=== PATIENT | male | born 1940 | race Caucasian/White ===

== ENCOUNTER 2016-08-21 09:57 | Emergency (ER) | payer OTHER ==
[~2016-08-21] VITALS: Ht 167.6 cm; Wt 63.5 kg
[~2016-08-21 09:57] MED LIST: ACETAMINOPHEN325 M1 PO; ADULT LOW DOSE81 MG PO; ALBUTEROL2.5 MG/0.1; ALBUTEROL2.5 MG/0.5 IH; ALBUTEROL2.5 MG/31 INH; ASPIRIN EC81 M1 PO; ASPIRIN81 M2 PO; ATORVASTATIN CA40 MG PO; BENICAR 5 MG5 MG PO; BENICAR20 MG PO; BENICAR40 MG PO; BISACODYL SUPP10 MG RECTAL; BUDESONIDE0.25 MG/2 IH; BUDESONIDE0.5 MG/2 M INH; BYSTOLIC 5 MG5 M1 PO; CARDIZEM CD120 MG PO; CEFDINIR300 MG PO; CEFTIN 250 MG250 MG PO; CEFUROXIME250 MG PO; CENTRUM CHEWAB1 EACH PO; CENTRUM SILVER1 EAC2 PO; CENTRUM SILVER1 EAC4 PO; CIPRO250 M1 PO; CIPROFLOXACIN500 M1 PO; CLOPIDOGREL PO; COLACE 100 MG100 MG PO; COLACE100 MG PO; COUMADIN 2.5MG2.5 M1 PO; COUMADIN 5 MG TA5 M1 PO; FERREX 150150 MG PO; FLOMAX0.4 MG PO; HYDROCHLOROTH12.5 MG PO; IPRATROPIU0.2 MG/1 M IH; JALYN 0.5-0.41 EACH PO; KEFLEX250 MG PO; KEFLEX500 MG PO; KEPPRA XR750 MG PO; LASIX 20 MG TAB20 MG PO; LASIX 40 MG TAB40 M2 PO; LEVAQUIN 500 M500 M2 PO; LIPITOR40 MG PO; MILK OF MA2400 MG/10 PO; MUCINEX600 MG PO; MULTIVITAMIN; ONDANSETRON HCL4 M2 PO; PACERONE 200 M200 M1 PO; PANTOPRAZOLE SO40 M1 PO; PEPCID40 MG PO; PERFORMIST; PERFORMIST INH; PERFOROMIS20 MCG/2 M IH; PERFOROMIST; PLAVIX 75 MG TA75 M1 PO; POTASSIUM20 PO; PRADAXA75 MG PO; PREDNISONE 10 M10 MG PO; PREDNISONE 20 M20 M1 PO; PROSCAR 5MG TABL5 M1 PO; PULMICORT0.5 MG/2 M IH; SENNA8.6 MG PO; SIMVASTATIN80 MG PO; SPIRIVA INH; TAMSULOSIN HCL0.4 MG PO; VENTOLIN HFA 1818 GM INH; VENTOLIN HFA INH8 GM; XOPENEX0.63 MG/3 INH
[2016-08-21 11:08] LABS: HEMATOCRIT 38.8 % (42.0-52.0); HEMOGLOBIN 12.9 gm/dL (14.0-18.0); MCH 29.9 pg (26.0-34.0); MCHC 33.3 g/dL (28.0-37.0); MCV 89.7 fL (80.0-100.0); RBC 4.33 mil/uL (4.50-6.00); RDW 17.7 % (10.5-14.5); WBC 7.9 thou/uL (4.0-11.0)
[2016-08-21 11:17] LABS: CALCIUM 8.9 mg/dL (8.5-10.1); CREATININE 1.2 mg/dL (0.7-1.3); POTASSIUM 4.4 mmol/L (3.5-5.1)
== END 2016-08-21 12:03 | disposition home or self-care (01) ==
LOC: ER 09:57
PROVIDERS: Emergency Medicine
DX: M79.641 Pain in right hand (principal); R05 Cough; R09.81 Nasal congestion; Z86.73 Personal history of transient ischemic attack (TIA), and cerebral infarction without residual deficits; I25.2 Old myocardial infarction; Z95.0 Presence of cardiac pacemaker; J44.9 Chronic obstructive pulmonary disease, unspecified; I10 Essential (primary) hypertension; Z88.1 Allergy status to other antibiotic agents

== ENCOUNTER 2017-02-03 18:10 | Emergency (ER) | payer OTHER ==
[~2017-02-03] VITALS: Ht 167.6 cm; Wt 63.5 kg
--- NOTE | ~2017-02-03 | EKG ---
[place] [address] [place] [address] ELECTROCARDIOGRAM REPORT Name: TOMASA MEDINA Room #: DEP Mya#: [id number] Admission: 02/03/17 Attend Phys: Discharge: 02/03/17 Date of : 38 Report #: [id number] THIS REPORT FOR: //name// [facility] ED Test Date: 2017-02-03 Test Time: 18:29:48 Pat Name: TOMASA MEDINA Department: Room: Gender: M Thread Winder Automatic: [id number] : 1940 Requested By: Komal Boyce Order Number: [id number] MD: Perez Miranda Measurements Intervals [place] Rate: 63 P: -25 ID: 66 QRS: -70 QRSD: 118 T: 125 QT: 421 QTc: 431 Interpretive Statements Sinus rhythm with first-degree AV block Multiform ventricular premature complexes Left anterior fascicular block Nonspecific ST and T wave abnormality Compared to ECG 01/19/2016 15:37:10 Ventricular premature complex(es) now present criteria for inferior infarct or less prominent Electronically Signed On 02-04-2017 7:26:36 CDT by Perez Miranda [email or web address] <ELECTRONICALLY SIGNED> By: Perez Miranda MD, [facility] 02/04/17 0726 28 28 Perez Miranda MD, [facility] /EPI
[2017-02-03 19:10] LABS: ABSOLUTE NEUTROPHILS 4.6 thou/uL (1.4-8.2); BASOPHILS 0.5 % (0.0-2.0); EOSINOPHILS 0.8 % (0.0-3.0); HEMATOCRIT 37.8 % (42.0-52.0); HEMOGLOBIN 12.8 gm/dL (14.0-18.0); LYMPHOCYTES 11.6 % (24.0-44.0); MCH 29.7 pg (26.0-34.0); MCHC 33.8 g/dL (28.0-37.0); MCV 87.6 fL (80.0-100.0); PLATELET COUNT 142 thou/uL (150-400); POLYS 76.1 % (36.0-66.0); RBC 4.32 mil/uL (4.50-6.00); RDW 17.3 % (10.5-14.5)
[2017-02-03 19:12] LABS: MANUAL DIFF NO
[2017-02-03 19:18] LABS: CALCIUM 9.2 mg/dL (8.5-10.1); CREATININE 1.1 mg/dL (0.7-1.3)
[2017-02-03 19:26] LABS: ALBUMIN 3.5 g/dL (3.4-5.0); PROTIME 10.5 Seconds (9.3-11.4); TOTAL BILIRUBIN 0.8 mg/dL (<0.1-1.0); TOTAL PROTEIN 6.5 g/dL (6.4-8.2); TROPONIN-I 0.04 ng/mL (<0.04-0.07)
[2017-02-03 19:45] LABS: URINE BILIRUBIN NEGATIVE (Negative); URINE BLOOD NEGATIVE (Negative); URINE COLOR YELLOW; URINE GLUCOSE-RANDOM* NEGATIVE (Negative); URINE KETONES NEGATIVE (Negative); URINE NITRITE NEGATIVE (Negative); URINE PROTEIN (DIPSTICK) NEGATIVE (Negative); URINE UROBILINOGEN 0.2 E.U./dl (0.2-1.0)
[2017-02-03] MEDS ORDERED: ZPAK PO (20:52)
[2017-02-03] MEDS ORDERED: DELTASONE20 MG PO (20:52)
== END 2017-02-03 21:20 | disposition home or self-care (01) ==
LOC: ER 18:10
PROVIDERS: Physician Assistant
DX: J44.1 Chronic obstructive pulmonary disease with (acute) exacerbation (principal); R10.30 Lower abdominal pain, unspecified; I69.920 Aphasia following unspecified cerebrovascular disease; I25.2 Old myocardial infarction; I10 Essential (primary) hypertension; Z95.0 Presence of cardiac pacemaker; Z88.1 Allergy status to other antibiotic agents; Z87.891 Personal history of nicotine dependence

== ENCOUNTER 2017-02-16 17:07 | Inpatient (IN) | payer OTHER ==
[~2017-02-16] VITALS: Ht 6 cm; Wt 65.7 kg
--- NOTE | ~2017-02-16 | 2DMMODE ---
[facility] [address] [place] [address] 2 D/M-MODE ECHOCARDIOGRAM Name: TOMASA MEDINA Room #: 206-P ADM IN M.R.#: [id number] Admission: 02/16/17 Attend Phys: Beatriz Park Discharge: Date of : 38 Date of Service: 02/17/17 1706 Report #: [id number] THIS REPORT FOR: //name// APPROVED REPORT Study performed: 02/17/2017 15:15:58 EXAM: Comprehensive 2D, Doppler, and color-flow Echocardiogram Patient Location: Echo lab Room #: 26 Status: routine BSA: 1.66 BP: 150/70 mmHg Other Information Study Quality: Adequate, Technically Difficult Indications COPD Dyspnea Pacemaker CAD Chest Pain Hypertension/HDD 2D Dimensions RVDd: 35.14 mm LVEF(%): 31.19 (>50%) IVSd: 12.86 (7-11mm) LVOT Diam: 17.85 (18-24mm) LVDd: 54.80 mm PWd: 12.25 (7-11mm) LVDs: 46.65 (25-40mm) Aortic Root: 31.57 mm IVC: 26.00 mm Petit's LVEF: 31.19 % Volumes Left Atrial Volume (Systole) Single Plane 4CH: 51.74 mL Single Plane 2CH: 61.02 mL LA ESV Index: 37.00 mL/m2 Aortic Valve AoV Peak Gage.: 0.97 m/s AO Peak Gr.: 3.78 mmHg LVOT Max P.31 mmHg LVOT Max V: 0.91 m/s [facility] [address] [place] [address] 2 D/M-MODE ECHOCARDIOGRAM Name: TOMASA MEDINA Room #: 206-P [facility] IN [facility]#: [id number] Admission: 02/16/17 Attend Phys: Beatriz Park Discharge: Date of : 38 Date of Service: 02/17/17 1706 Report #: [id number] [id number] Vmax: 2.34 cm2 Mitral Valve E/A Ratio: 0.4 MV Decel. Time: 245.18 ms MV E Max Gage.: 0.38 m/s MV A Gage.: 0.93 m/s MV PHT: 71.10 ms IVRT: 235.29 ms Pulmonary Valve PV Peak Gage.: 0.84 m/s PV Peak Gr.: 2.84 mmHg Tricuspid Valve TR Peak Gage.: 2.90 m/s RAP Estimate: 10.00 mmHg TR Peak Gr.: 33.62 mmHg Left Ventricle Left ventricle is at the upper limits of normal. Akinesis of inferior and inferolateral neely Mild concentric left ventricular hypertrophy. Left ventricular systolic function is severely decreased. LVEF is 25%. Mild diastolic dysfunction is present (impaired relaxation pattern). Right Ventricle Right ventricle is at the upper limits of normal. Right ventricle is hypokinetic. Atria Left atrium is mildly dilated. Right atrium is mildly dilated. Aortic Valve The aortic valve is normal in structure. Trace aortic regurgitation. There is no aortic valvular stenosis. Mitral Valve The mitral valve is normal in structure. Mild mitral regurgitation. No evidence of mitral valve stenosis. Tricuspid Valve The tricuspid valve is normal in structure. There is mild tricuspid regurgitation. The right atrial pressure is estimated at 10 mmHg. PAP is estimated at 40 mmHg. Pulmonic Valve [facility] [address] [place] [address] 2 D/M-MODE ECHOCARDIOGRAM Name: TOMASA MEDINA Room #: 206-P ADM IN M.R.#: [id number] Admission: 02/16/17 Attend Phys: Beatriz Park Discharge: Date of : 38 Date of Service: 02/17/17 1706 Report #: [id number] Pulmonic valve is not well visualized. There is no pulmonic valvular regurgitation. Great Vessels The aortic root is normal in size. IVC is dilated and collapses >50% with inspiration. Pericardium There is no pericardial effusion. <Conclusion> Left ventricular systolic function is severely decreased. LVEF is 25%. Global hypokinesis. Akinesis of inferior and inferolateral neely Both atria are dilated. The aortic valve is normal in structure. No aortic valvular stenosis. The mitral valve is normal in structure. Mild mitral regurgitation. Pulmonary artery pressure of 40mmHg There is no pericardial effusion. Pacing/ICD wires in right heart <ELECTRONICALLY SIGNED> By: Perez Miranda MD, FACC 02/17/171705 05 05 Perez Miranda MD, FACC /INF
--- NOTE | ~2017-02-16 | HC ---
[facility] [place] [address] CONSULTATION Name: TOMASA MEDINA Room #: 206-P [facility] IN M.R.#: [id number] Admission: 02/16/17 Attend Phys: Dom Millan MD Discharge: 02/18/17 Date of : 39 Report #: [id number] THIS REPORT FOR: //name// CC: Arnaldo Millan HISTORY OF PRESENT ILLNESS: A 77-year-old male well known to myself, admitted with some atypical chest pain. He is aphasic from a remote stroke. 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 Coronary coreas, he has an occluded right coronary artery, he has had prior stents to his LAD and circumflex. Apparently, recent nuclear test in September was cancelled for some reason. He has a nondescript discomfort by tapping on his chest and the right shoulder. His usual anginal pain has been posterior neck pain. Unfortunately, I do not have any recent test otherwise. He has been compliant with medications. He has actually been quite stable from my perspective, he has grade 1 diastolic dysfunction and an EF of 25-30%. Pacemaker was interrogated. Sick sinus syndrome, paroxysmal AFib. He has periods of bigeminy here in the hospital. He has been compliant with medications. He is also followed by Dr. Frye and Dr. Mayfield. Pacemaker ICD was interrogated last night. No events were noted. There were paroxysmal AFib noted, which we are aware of. As I stated, the CVA was expressive aphasia and right-sided weakness. MEDICATIONS: Have been albuterol, aspirin, Lipitor 40, Pulmicort, Pradaxa 75, Proscar, Lasix, Xopenex, Bystolic 5, Benicar 20, Protonix, Flomax. PAST MEDICAL HISTORY: Positive for coronary disease, severe ischemic cardiomyopathy, prior LAD and circumflex stents, last cath in 2009, occluded right coronary artery, inferior infarct which was extensive, but collateralized. Hypertension, hypercholesterolemia, CVA with clot retrieval and an intracranial hemorrhage at that setting. Pacemaker was placed in 2010. DJD. SOCIAL HISTORY: He is . No current alcohol or tobacco, former tobacco. Retired, relatively independent. ALLERGIES: LEVAQUIN. FAMILY HISTORY: Mother had premature disease. Father had prostate cancer. REVIEW OF SYSTEMS: Essentially negative except for stated above. LABORATORY DATA: Sodium 143, potassium 4.6, creatinine 1.0. Troponin negative 0.04, 0.06, not significant. Cholesterol 194, LDL 100, that was from ____ yesterday. Hemoglobin and hematocrit is 12 and 37.5, white count 7.1. Chest x-ray looks normal. CT of the abdomen done in February 03 had a 3.6 cm inferior ____ aneurysm, which we are aware of and some thickened gallbladder. [address] [address] CONSULTATION Name: TOMASA MEDINA Room #: 206-P [facility] IN M.R.#: [id number] Admission: 02/16/17 Attend Phys: Dom Millan MD Discharge: 02/18/17 Date of : 38 Report #: [id number] PHYSICAL EXAMINATION: GENERAL: He is alert, but aphasic. He is in no distress. VITAL SIGNS: Blood pressure 150/70, pulse 60. HEENT: Eyes reveal xanthelasmas. Pharynx is clear. NECK: Shows preserved upstrokes without JVD or bruits. LUNGS: Clear. CARDIAC: Regular rate and rhythm, S1, S2. There is some irregularity. Faint systolic murmur noted. ABDOMEN: Soft, HSM to slightly tender in the midepigastric and right upper quadrant plus/minus on Khan sign. EXTREMITIES: Reveal trace of edema. Pulses intact. NEUROLOGIC: He is aphasic. There is some weakness on the right side noted. I did not ambulate him. ASSESSMENT: 1. Chest pain, I suspect noncardiac. 2. Coronary artery disease with extensive cardiac history stated above. 3. Moderately severe ischemic cardiomyopathy, functional class 1-2. 4. Hypertension. 5. Hypercholesterolemia. 6. 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 7. Degenerative joint disease. RECOMMENDATIONS AND PLAN: We will obtain abdominal ultrasound today, some abnormality on the CAT scan last month of the gallbladder and nuclear stress test in the morning. I will repeat his echo looking for any change in the wall motion, although he had significant abnormality that was noted in September in the office. We will continue to follow with you. Thank you for asking me to assist in the care of this patient. <ELECTRONICALLY SIGNED> By: Grabiel Dumont MD, FACC 02/19/17 1622 0931 1051 Grabiel Dumont MD, FACC /nt
--- NOTE | ~2017-02-16 | EKG ---
[address] [place] [address] ELECTROCARDIOGRAM REPORT Name: TOMASA MEDINA Room #: 206-P ADM IN M.R.#: [id number] Admission: 02/16/17 Attend Phys: Dom Millan MD Discharge: Date of : 39 Report #: [id number] THIS REPORT FOR: //name// [facility] ED Test Date: 2017-02-16 Test Time: 17:51:31 Pat Name: TOMASA MEDINA Department: Room: 206 P Gender: M Computer Technical Specialist: CYNTHIA : 1940 Requested By: River Waller Order Number: [id number] MD: Perez Miranda Measurements Intervals [place] Rate: 72 P: 37 DC: 261 QRS: -65 QRSD: 155 T: 163 QT: 433 QTc: 474 Interpretive Statements Sinus rhythm Ventricular bigeminy Prolonged [place] interval Nonspecific IVCD Early R-wave progression, left anterior hemiblock Compared to ECG 02/16/2017 17:30:48 No significant change was found Electronically Signed On 02-17-2017 7:45:33 CDT by Perez Miranda [email or web address] <ELECTRONICALLY SIGNED> By: Perez Miranda MD, [facility] 02/17/17 0745 1751 1751 Perez Miranda MD, [facility] /EPI
--- NOTE | ~2017-02-16 | EKG ---
[address] [address] ELECTROCARDIOGRAM REPORT Name: TOMASA MEDINA Room #: 206-P ADM IN M.R.#: [id number] Admission: 02/16/17 Attend Phys: Arnaldo Zheng DO Discharge: Date of : 39 Report #: [id number] THIS REPORT FOR: //name// [facility] ED Test Date: 2017-02-16 Test Time: 17:30:48 Pat Name: TOMASA MEDINA Department: Room: 206 Gender: M Foot Roentgenologist: CYNTHIA : 1940 Requested By: Jimmie Poe Order Number: [id number] MD: Carlyle Betancourt Measurements Intervals [place] Rate: 78 P: 41 [place]: 255 QRS: -70 QRSD: 151 T: 172 QT: 408 QTc: 465 Interpretive Statements Sinus rhythm Ventricular bigeminy Prolonged [place] interval Electronically Signed On 02-16-2017 23:32:33 CDT by Carlyle Betancourt [email or web address] <ELECTRONICALLY SIGNED> By: Carlyle Betancourt MD 02/16/17 2332 1730 29 Carlyle Betancourt MD /ARJUN
[~2017-02-16 17:07] MED LIST changes: +DELTASONE20 MG PO; +ZPAK PO
[2017-02-16 17:12] VITALS: BP 128/51
[2017-02-16 18:47] LABS: HEMATOCRIT 36.5 % (42.0-52.0); HEMOGLOBIN 12.2 gm/dL (14.0-18.0); MCH 29.6 pg (26.0-34.0); MCHC 33.4 g/dL (28.0-37.0); MCV 88.5 fL (80.0-100.0); PLATELET COUNT 188 thou/uL (150-400); RBC 4.12 mil/uL (4.50-6.00); RDW 18.2 % (10.5-14.5); WBC 7.7 thou/uL (4.0-11.0)
[2017-02-16 18:49] LABS: MANUAL DIFF YES
[2017-02-16 18:53] LABS: ANION GAP < 0 mmol/L (7-16); BUN 27 mg/dL (7-18); CHLORIDE 104 mmol/L (98-107); CO2 37 mmol/L (21-32); CREATININE 1.1 mg/dL (0.7-1.3); GLUCOSE 106 mg/dL (74-106); POTASSIUM 4.8 mmol/L (3.5-5.1); SODIUM 140 mmol/L (136-145)
[2017-02-16 19:02] LABS: TROPONIN-I < 0.04 ng/mL (<0.04-0.07)
[2017-02-16 19:25] LABS: ABSOLUTE NEUTROPHILS 6.9 thou/uL (1.4-8.2); ANISOCYTOSIS 2+; TOTAL CELL COUNT 100
[2017-02-16 20:31] VITALS: BP 125/51
[2017-02-16 20:41] VITALS: BP 127/77
[2017-02-16] MEDS ORDERED: PULMICORT0.5 MG/22 INH (21:41)
[2017-02-16 21:43] VITALS: BP 126/61
[2017-02-16] MEDS ORDERED: VENTOLIN HFA 1818 GM INH (21:44)
[2017-02-16] MEDS ORDERED: ATROVENT HFA14 GM INH (21:46)
[2017-02-16 23:17] VITALS: BP 115/69
[2017-02-17 03:55] VITALS: BP 138/87
[2017-02-17 07:05] LABS: HEMATOCRIT 37.5 % (42.0-52.0); HEMOGLOBIN 12.2 gm/dL (14.0-18.0); MCH 29.3 pg (26.0-34.0); MCHC 32.6 g/dL (28.0-37.0); MCV 89.9 fL (80.0-100.0); RBC 4.18 mil/uL (4.50-6.00); WBC 7.1 thou/uL (4.0-11.0)
[2017-02-17 07:22] LABS: CALCIUM 8.9 mg/dL (8.5-10.1); POTASSIUM 4.6 mmol/L (3.5-5.1); TROPONIN-I 0.06 ng/mL (<0.04-0.07)
[2017-02-17 08:06] LABS: CHOLESTEROL 194 mg/dL (<200); HDL CHOLESTEROL 85 mg/dL (>40); LDL CHOLESTEROL 100 mg/dL (<100); TC:HDL 2.3 Ratio (Not establshd); TRIGLYCERIDE 48 mg/dL (<150); VLDL 10 mg/dL (<40)
[2017-02-17 08:14] VITALS: BP 150/70
[2017-02-17 15:15] VITALS: BP 150/70
[2017-02-17 15:20] VITALS: BP 150/70
[2017-02-17 17:09] VITALS: BP 124/64
[2017-02-17 19:35] VITALS: BP 91/51
[2017-02-18 02:57] VITALS: BP 141/70
[2017-02-18 08:03] VITALS: BP 118/48
[2017-02-18 11:24] VITALS: BP 107/52
[2017-02-18 11:29] VITALS: BP 150/70
== END 2017-02-18 12:04 | disposition home or self-care (01) | DRG 303 ==
LOC: ER 17:07 → 2N 19:34 → EROBS 19:34 → 2N 21:26 → ENTRNSPT 02-18 11:47 → EDTRNSPTSTS 02-18 11:49 → 2N 02-18 12:04
PROVIDERS: Internal Medicine; Nurse Practitioner
DX: I25.10 Atherosclerotic heart disease of native coronary artery without angina pectoris (principal); I50.22 Chronic systolic (congestive) heart failure; I13.0 Hypertensive heart and chronic kidney disease with heart failure and stage 1 through stage 4 chronic kidney disease, or unspecified chronic kidney disease; I69.951 Hemiplegia and hemiparesis following unspecified cerebrovascular disease affecting right dominant side; R07.9 Chest pain, unspecified; I69.320 Aphasia following cerebral infarction; I25.5 Ischemic cardiomyopathy; J44.9 Chronic obstructive pulmonary disease, unspecified; E78.5 Hyperlipidemia, unspecified; N40.0 Benign prostatic hyperplasia without lower urinary tract symptoms; K21.9 Gastro-esophageal reflux disease without esophagitis; I49.5 Sick sinus syndrome; N18.3 Chronic kidney disease, stage 3 (moderate); I48.0 Paroxysmal atrial fibrillation; M19.90 Unspecified osteoarthritis, unspecified site; K80.80 Other cholelithiasis without obstruction; I25.2 Old myocardial infarction; N28.1 Cyst of kidney, acquired; Z95.5 Presence of coronary angioplasty implant and graft; Z95.810 Presence of automatic (implantable) cardiac defibrillator; Z86.711 Personal history of pulmonary embolism; Z99.81 Dependence on supplemental oxygen; Z87.01 Personal history of pneumonia (recurrent); Z87.891 Personal history of nicotine dependence; Z88.1 Allergy status to other antibiotic agents; Z28.21 Immunization not carried out because of patient refusal
CPT/HCPCS: 10081

== ENCOUNTER 2017-05-09 10:56 | Inpatient (IN) | payer OTHER ==
[~2017-05-09] VITALS: Ht 167.6 cm; Wt 63.9 kg
--- NOTE | ~2017-05-09 | EKG ---
[place] [address] [email or web address] [place] [address] ELECTROCARDIOGRAM REPORT Name: TOMASA MEDINA ANDREA Room #: 360- ADM IN M.R.#: [id number] Admission: 05/09/17 Attend Phys: Arnaldo Zheng DO Discharge: Date of : 39 Report #: [id number] THIS REPORT FOR: //name// [facility] ED Test Date: 2017-05-09 Test Time: 11:22:05 Pat Name: TOMASA MEDINA Department: Room: 360 Gender: M Entertainment Lawyer: Kim DOUGHERTY : 1940 Requested By: Edgar Plasencia Order Number: [id number] MD: Perez Miranda Measurements Intervals [place] Rate: 85 P: [place]: QRS: -71 QRSD: 111 T: 103 QT: 380 QTc: 452 Interpretive Statements Baseline artifact limits rhythm assessment. Possible sinus rhythm Left anterior hemiblock Nonspecific ST and T wave abnormality Compared to ECG 02/16/2017 17:51:31 premature ventricular complexes are no longer present Electronically Signed On 05-11-2017 13:57:40 METAL RIVETING MACHINE OPERATOR by Perez Miranda [email or web address] <ELECTRONICALLY SIGNED> By: Perez Miranda MD, [facility] 05/11/17 1357 1122 1122 Perez Miranda MD, [facility] /EPI
--- NOTE | ~2017-05-09 | HC ---
[facility] [place] [address] CONSULTATION Name: TOMASA MEDINA Room #: 360-P [facility] IN M.R.#: [id number] Admission: 05/09/17 Attend Phys: Arnaldo Zheng DO Discharge: 05/13/17 Date of : 39 Report #: [id number] THIS REPORT FOR: //name// CC: Arnaldo Mayfield MD DATE OF SERVICE: 05/09/2017 PULMONARY CONSULTATION REFERRING PROVIDER: Arnaldo Zheng DO REASON FOR CONSULTATION: Hypercapnic respiratory failure and exacerbation of COPD. CHIEF COMPLAINT: Shortness of breath. HISTORY OF PRESENT ILLNESS: Our group is asked to evaluate the patient in consultation while hospitalized at [facility]. The patient is unable to give history due to an expressive aphasia from prior stroke, but history taken from family at the bedside as well as discussion with Dr. Plasencia and review of our office records. He is a pleasant 77-year-old male with the prior history of COPD and chronic systemic steroid use to maintain control of his obstructive lung disease as well as history of prior CVA with some right-sided hemiparesis, but he is ambulatory. Does require supplemental oxygen at baseline, 2 liters nasal cannula continuous. Several days ago, he began having increased shortness of breath, cough without ability to clear sputum and some upper respiratory congestion. No fevers, chills or sweats. Some ill contacts noted when they were at a stroke support group. The patient was able to, however, continue with regular exercise at stroke rehab, doing NuStep, but over the last 3-4 days had increasing shortness of breath as mentioned, inability to walk from his bed to his bathroom without becoming severely dyspneic and was also having some chest tightness. He called our office 2 days ago, was placed on cefdinir and had his prednisone boosted to 20 mg daily. He has also been using aerosol treatments around the clock. The patient's symptoms continued to worsen, presented to the Emergency Department in significant respiratory distress. Arterial blood gas showed some hypercapnia, was placed on noninvasive positive pressure ventilation with BiPAP. The patient has improved since that time. Also received systemic steroids at the time of my evaluation. Now patient is much more comfortable and only mildly labored at rest with his respirations. ALLERGIES: INCLUDE LEVOFLOXACIN. [address] [address] CONSULTATION Name: ADAMTOMASA Room #: 360-P [facility] IN M.R.#: [id number] Admission: 05/09/17 Attend Phys: Arnaldo Zheng DO Discharge: 05/13/17 Date of : 39 Report #: [id number] PAST MEDICAL HISTORY: 1. History of COPD with significant asthmatic component, requiring systemic steroids. 2. Chronic hypoxemic respiratory failure secondary to COPD. 3. History of prior cerebrovascular accident with right-sided hemiparesis and expressive aphasia. 4. Coronary artery disease. 5. Hypertension. 6. Hyperlipidemia. 7. Paroxysmal atrial fibrillation. 8. Cardiomyopathy. OUTPATIENT MEDICATIONS: 1. Pulmicort nebulized twice daily. 2. Prednisone 10 mg daily, recently increased to 20 daily. 3. Albuterol p.r.n. 4. Ipratropium inhaler. 5. Levalbuterol inhaler. 6. Lasix 40 mg daily. 7. Aspirin 81 mg daily. 8. Bystolic 5 mg daily. 9. Flomax 0.4 mg daily. 10. Perforomist nebulized twice daily. 11. Multivitamin. 12. Atorvastatin. 13. Protonix. SOCIAL HISTORY: The patient is an ex-smoker, currently lives with his , is reasonably independent, ambulatory despite prior stroke, currently retired. No alcohol consumption. FAMILY HISTORY: Significant for father with prostate cancer. Mother with coronary artery disease. REVIEW OF SYSTEMS: CONSTITUTIONAL: No fevers, chills or sweats. ENT: Some upper respiratory congestion with clear rhinorrhea. No dysphagia. CARDIOVASCULAR: Some chest tightness associated with exertional dyspnea, but no palpitations. GASTROINTESTINAL: No nausea, vomiting, diarrhea, constipation or abdominal pain. GENITOURINARY: No dysuria, no frequency or hematuria noted. INTEGUMENT: Denies any rash. MUSCULOSKELETAL: No joint pains or cramping or edema appreciated. NEUROLOGIC: As previously described with some right-sided weakness. The [address] [address] CONSULTATION Name: ADAMTOMASA MENDEZ Room #: 360-P [facility] IN M.R.#: [id number] Admission: 05/09/17 Attend Phys: Arnaldo Zheng DO Discharge: 05/13/17 Date of : 39 Report #: [id number] states may have been worsened since feeling ill for the past 5 days. PHYSICAL EXAMINATION: VITAL SIGNS: Afebrile, pulse 80s, respiratory rate 16, blood pressure 97/56 and oxygen saturation 97% on 4 liters nasal cannula. GENERAL: This is a pleasant elderly male, does not appear in any distress. HEENT: Clear oropharynx. Mallampati 1 airway. No thrush. No erythema. NECK: Supple. No lymphadenopathy. No stridor. LUNGS: Diminished, prolonged expiratory phase with diffuse ____ wheezes noted throughout on expiration. Chest revealed some mild kyphosis. CARDIOVASCULAR: Heart was regular. I could not appreciate any murmurs or gallops. ABDOMEN: Soft and nontender. No masses. No hepatosplenomegaly. EXTREMITIES: Revealed some mild muscular atrophy. No edema. LABORATORY DATA: White blood cell count 8000, hemoglobin 13, hematocrit 39 and platelet count 197. Sodium 144, potassium 4.5, chloride 104 and bicarbonate 39. BUN 29 and creatinine 1.6. Glucose 180. Troponin 0.11. BNP 3347. Arterial blood gas done on nonrebreather mask revealed pH 7.32, pCO2 71, pO2 391 and bicarbonate 36. Chest x-ray revealed essentially clear lung pedro. Right-sided pacemaker is noted to be in place. Some obscuration of the structures below the pacemaker. IMPRESSION: 1. Acute exacerbation of chronic obstructive pulmonary disease, likely due to lower respiratory infection. 2. Pdbco-ev-eyjtdwl hypercapnic and hypoxemic respiratory failure. 3. History of prior cerebrovascular accident. 4. History of coronary artery disease. SUGGESTIONS: 1. Systemic steroid with taper. 2. Frequent bronchodilators. 3. Follow up chest radiograph. 4. Continue with Rocephin and azithromycin. 5. Sputum cultures if able. 6. Nasal swab for respiratory viral panel and rapid influenza screen. 7. Continuous oximetry. 8. Continue with BiPAP at bedtime tonight and as needed. We will follow along. Thank you for requesting our suggestions. <ELECTRONICALLY SIGNED> By: Juan Alberto Puente MD 05/16/17 1726 1525 0215 Juan Alberto Puente MD /zee
[~2017-05-09 10:56] MED LIST changes: +ATROVENT HFA14 GM INH; +PULMICORT0.5 MG/22 INH
[2017-05-09 10:59] VITALS: BP 110/44
[2017-05-09 11:29] LABS: HEMATOCRIT 39.4 % (42.0-52.0); HEMOGLOBIN 12.8 gm/dL (14.0-18.0); MCH 30.2 pg (26.0-34.0); MCHC 32.4 g/dL (28.0-37.0); MCV 93.1 fL (80.0-100.0); RBC 4.24 mil/uL (4.50-6.00); RDW 16.9 % (10.5-14.5); WBC 8.4 thou/uL (4.0-11.0)
[2017-05-09 11:38] LABS: CALCIUM 9.7 mg/dL (8.5-10.1); CREATININE 1.6 mg/dL (0.7-1.3); POTASSIUM 4.5 mmol/L (3.5-5.1)
[2017-05-09] MEDS ORDERED: CENTRUM SILVER1 EAC4 PO (11:42)
[2017-05-09] MEDS ORDERED: PREDNISONE 20 M20 MG PO (11:45)
[2017-05-09 11:48] LABS: TROPONIN-I 0.11 ng/mL (<0.06)
[2017-05-09 12:03] LABS: BE(vivo) 7.3 mmol/L (-2 to +3); HCO3 35.7 mmol/L (22.0-26.0); PCO2 70.5 mmHg (35.0-45.0); PO2 390.8 mmHg (80.0-100.0); pH 7.322 (7.360-7.450); sO2 99.8 % (92.0-98.0)
[2017-05-09 12:50] VITALS: BP 102/56
[2017-05-09 14:20] VITALS: BP 97/56
[2017-05-09 16:00] VITALS: BP 177/78
[2017-05-09 18:55] VITALS: BP 98/54
[2017-05-09 23:05] VITALS: BP 112/67
[2017-05-10 04:10] VITALS: BP 121/74
[2017-05-10 05:46] LABS: BE(vivo) 8.7 mmol/L (-2 to +3); HCO3 36.4 mmol/L (22.0-26.0); PO2 96.3 mmHg (80.0-100.0); pH 7.355 (7.360-7.450); sO2 96.8 % (92.0-98.0)
[2017-05-10 05:49] LABS: PCO2 66.7 mmHg (35.0-45.0)
[2017-05-10 08:46] VITALS: BP 150/68
[2017-05-10 12:00] VITALS: BP 122/67
[2017-05-10 12:25] LABS: HEMATOCRIT 37.1 % (42.0-52.0); HEMOGLOBIN 12.2 gm/dL (14.0-18.0); MCH 30.4 pg (26.0-34.0); MCHC 32.8 g/dL (28.0-37.0); MCV 92.7 fL (80.0-100.0); PLATELET COUNT 169 thou/uL (150-400); RDW 16.8 % (10.5-14.5); WBC 9.6 thou/uL (4.0-11.0)
[2017-05-10 12:50] LABS: ABSOLUTE NEUTROPHILS 8.5 thou/uL (1.4-8.2); ANISOCYTOSIS 1+
[2017-05-10 16:35] VITALS: BP 121/67
[2017-05-10 19:30] VITALS: BP 95/57
[2017-05-11 03:23] VITALS: BP 134/75
[2017-05-11 04:34] LABS: CALCIUM 9.1 mg/dL (8.5-10.1); CREATININE 1.2 mg/dL (0.7-1.3); POTASSIUM 5.4 mmol/L (3.5-5.1)
[2017-05-11 07:22] VITALS: BP 152/85
[2017-05-11 12:50] VITALS: BP 127/71
[2017-05-11 17:00] VITALS: BP 126/67
[2017-05-11 20:40] VITALS: BP 134/78
[2017-05-12 04:30] VITALS: BP 134/95
[2017-05-12 05:09] LABS: BE(vivo) 5.1 mmol/L (-2 to +3); HCO3 32.5 mmol/L (22.0-26.0); PCO2 61.1 mmHg (35.0-45.0); PO2 82.6 mmHg (80.0-100.0); pH 7.344 (7.360-7.450); sO2 95.3 % (92.0-98.0)
[2017-05-12 06:56] LABS: HEMATOCRIT 38.6 % (42.0-52.0); HEMOGLOBIN 12.6 gm/dL (14.0-18.0); MCH 30.2 pg (26.0-34.0); MCHC 32.6 g/dL (28.0-37.0); MCV 92.8 fL (80.0-100.0); PLATELET COUNT 174 thou/uL (150-400); RBC 4.16 mil/uL (4.50-6.00); RDW 16.6 % (10.5-14.5); WBC 11.6 thou/uL (4.0-11.0)
[2017-05-12 07:06] LABS: CALCIUM 8.8 mg/dL (8.5-10.1); CREATININE 1.1 mg/dL (0.7-1.3); POTASSIUM 4.5 mmol/L (3.5-5.1)
[2017-05-12 08:37] LABS: ABSOLUTE NEUTROPHILS 10.9 thou/uL (1.4-8.2); ANISOCYTOSIS 1+
[2017-05-12 09:05] VITALS: BP 137/80
[2017-05-12 13:25] VITALS: BP 101/61
[2017-05-12 15:20] VITALS: BP 125/78
[2017-05-12 19:40] VITALS: BP 115/70
[2017-05-13 01:08] LABS: ADENOVIRUS Negative (Negative); INFLUENZA A Negative (Negative); INFLUENZA B Negative (Negative); METAPNEUMOVIRUS Negative (Negative); PARAINFLUENZA 1 Negative (Negative); PARAINFLUENZA 2 Negative (Negative); PARAINFLUENZA 3 Negative (Negative); RHINOVIRUS Negative (Negative); RSV A Positive (Negative); RSV B Negative (Negative)
[2017-05-13 03:35] VITALS: BP 156/95
[2017-05-13 06:49] LABS: HEMATOCRIT 35.9 % (42.0-52.0); MCH 30.4 pg (26.0-34.0); MCHC 33.5 g/dL (28.0-37.0); MCV 90.7 fL (80.0-100.0); PLATELET COUNT 162 thou/uL (150-400); RBC 3.96 mil/uL (4.50-6.00); RDW 16.5 % (10.5-14.5); WBC 11.3 thou/uL (4.0-11.0)
[2017-05-13 07:58] LABS: CALCIUM 8.7 mg/dL (8.5-10.1); CREATININE 1.1 mg/dL (0.7-1.3); POTASSIUM 4.2 mmol/L (3.5-5.1)
[2017-05-13 08:04] VITALS: BP 163/93
[2017-05-13] MEDS ORDERED: AZITHROMYCIN 2250 MG PO (09:17)
[2017-05-13] MEDS ORDERED: ALBUTEROL2.5 MG/0.5 INH (09:17)
[2017-05-13] MEDS ORDERED: MEDROL DOSPAK21 TA1 PO (09:17)
[2017-05-13] MEDS ORDERED: KEFLEX500 M1 PO (09:18)
[2017-05-13 10:44] LABS: ABSOLUTE NEUTROPHILS 11.1 thou/uL (1.4-8.2)
[2017-05-13 10:46] LABS: ANISOCYTOSIS SLIGHT; POIKILOCYTOSIS SLIGHT
[2017-05-13 15:52] VITALS: BP 163/93
== END 2017-05-13 16:58 | disposition home or self-care (01) | DRG 189 ==
LOC: ER 10:56 → 3W 12:12 → EROBS 12:12 → 3W 14:25
PROVIDERS: Emergency Medicine; Family Medicine; Internal Medicine Pulmonary Disease
PROC: 5A09357 Assistance with Respiratory Ventilation, Less than 24 Consecutive Hours, Continuous Positive Airway Pressure (ICD-10-PCS; principal; 2017-05-09)
DX: J96.21 Acute and chronic respiratory failure with hypoxia (principal); J44.1 Chronic obstructive pulmonary disease with (acute) exacerbation; I69.351 Hemiplegia and hemiparesis following cerebral infarction affecting right dominant side; I50.22 Chronic systolic (congestive) heart failure; I13.0 Hypertensive heart and chronic kidney disease with heart failure and stage 1 through stage 4 chronic kidney disease, or unspecified chronic kidney disease; J96.22 Acute and chronic respiratory failure with hypercapnia; E78.5 Hyperlipidemia, unspecified; N40.0 Benign prostatic hyperplasia without lower urinary tract symptoms; K21.9 Gastro-esophageal reflux disease without esophagitis; N18.3 Chronic kidney disease, stage 3 (moderate); I25.5 Ischemic cardiomyopathy; I48.0 Paroxysmal atrial fibrillation; E87.5 Hyperkalemia; E78.00 Pure hypercholesterolemia, unspecified; I25.10 Atherosclerotic heart disease of native coronary artery without angina pectoris; Z95.5 Presence of coronary angioplasty implant and graft; Z79.899 Other long term (current) drug therapy; I69.320 Aphasia following cerebral infarction; Z93.0 Tracheostomy status; Z95.810 Presence of automatic (implantable) cardiac defibrillator; Z93.1 Gastrostomy status; I25.2 Old myocardial infarction; Z86.711 Personal history of pulmonary embolism; Z88.1 Allergy status to other antibiotic agents; Z87.891 Personal history of nicotine dependence; Z82.49 Family history of ischemic heart disease and other diseases of the circulatory system; Z80.42 Family history of malignant neoplasm of prostate; Z99.81 Dependence on supplemental oxygen
CPT/HCPCS: 10779

== ENCOUNTER 2018-03-04 14:17 | Emergency (ER) | payer OTHER ==
[~2018-03-04] VITALS: Ht 162.6 cm; Wt 63.5 kg
--- NOTE | ~2018-03-04 | EKG ---
[address] [address] ELECTROCARDIOGRAM REPORT Name: TOMASA MEDINA [id number] Admission: 03/04/18 Attend Phys: Discharge: 03/04/18 Date of : 38 Report #: [id number] THIS REPORT FOR: //name// [facility] ED Test Date: 2018-03-04 Test Time: 16:17:45 Pat Name: TOMASA MEDINA Department: Room: Gender: M Hot Strip Mill Inspector: SAMEER : 1940 Requested By: River Waller Order Number: [id number] MD: Carlyle Betancourt Measurements Intervals [place] Rate: 74 P: [place]: QRS: -59 QRSD: 116 T: 127 QT: 535 QTc: 594 Interpretive Statements Sinus rhythm with first degree av block Inferior infarct, old Motion artifact Compared to ECG 05/09/2017 11:22:05 Electronically Signed On 03-05-2018 8:32:09 CDT by Carlyle Betancourt [email or web address] <ELECTRONICALLY SIGNED> By: Carlyle Betancourt MD 03/05/18 0832 16 16 Carlyle Betancourt MD /ARJUN
[~2018-03-04 14:17] MED LIST changes: +ALBUTEROL2.5 MG/0.5 INH; +AZITHROMYCIN 2250 MG PO; +KEFLEX500 M1 PO; +MEDROL DOSPAK21 TA1 PO; +PREDNISONE 20 M20 MG PO
[2018-03-04 15:49] LABS: ABSOLUTE NEUTROPHILS 7.5 thou/uL (1.4-8.2); BASOPHILS 0.4 % (0.0-2.0); EOSINOPHILS 0.2 % (0.0-3.0); HEMATOCRIT 35.5 % (42.0-52.0); HEMOGLOBIN 11.6 gm/dL (14.0-18.0); LYMPHOCYTES 4.5 % (24.0-44.0); MCH 28.7 pg (26.0-34.0); MCHC 32.6 g/dL (28.0-37.0); MCV 87.9 fL (80.0-100.0); MONOCYTES 5.3 % (1.0-8.0); PLATELET COUNT 167 thou/uL (150-400); POLYS 89.6 % (36.0-66.0); RBC 4.04 mil/uL (4.50-6.00); RDW 17.8 % (10.5-14.5); WBC 8.4 thou/uL (4.0-11.0)
[2018-03-04 15:58] LABS: ANION GAP 4 mmol/L (7-16); BUN 23 mg/dL (7-18); CHLORIDE 104 mmol/L (98-107); CO2 35 mmol/L (21-32); CREATININE 1.2 mg/dL (0.7-1.3); GLUCOSE 127 mg/dL (74-106); POTASSIUM 4.9 mmol/L (3.5-5.1); SODIUM 143 mmol/L (136-145)
[2018-03-04 16:06] LABS: SGOT 20 U/L (15-37); SGPT 23 U/L (30-65); TOTAL BILIRUBIN 0.5 mg/dL (<0.1-1.0); TOTAL PROTEIN 6.1 g/dL (6.4-8.2); TROPONIN-I <0.06 ng/mL (<0.06)
[2018-03-04] MEDS ORDERED: TRAMADOL 50 MG50 MG PO (16:44)
== END 2018-03-04 17:09 | disposition home or self-care (01) ==
LOC: ER 14:17
PROVIDERS: Emergency Medicine
DX: S20.212A Contusion of left front wall of thorax, initial encounter (principal); G81.91 Hemiplegia, unspecified affecting right dominant side; M62.838 Other muscle spasm; I25.2 Old myocardial infarction; J44.9 Chronic obstructive pulmonary disease, unspecified; E78.5 Hyperlipidemia, unspecified; N40.0 Benign prostatic hyperplasia without lower urinary tract symptoms; K21.9 Gastro-esophageal reflux disease without esophagitis; I42.9 Cardiomyopathy, unspecified; I25.10 Atherosclerotic heart disease of native coronary artery without angina pectoris; I48.91 Unspecified atrial fibrillation; I13.0 Hypertensive heart and chronic kidney disease with heart failure and stage 1 through stage 4 chronic kidney disease, or unspecified chronic kidney disease; N18.3 Chronic kidney disease, stage 3 (moderate); I50.22 Chronic systolic (congestive) heart failure; Z95.810 Presence of automatic (implantable) cardiac defibrillator; W18.30XA Fall on same level, unspecified, initial encounter; Y93.89 Activity, other specified; Y92.89 Other specified places as the place of occurrence of the external cause; Y99.8 Other external cause status; Z86.711 Personal history of pulmonary embolism; Z79.01 Long term (current) use of anticoagulants

== ENCOUNTER → 2018-06-24 | Outpatient (CLI) | payer OTHER ==
[~2018-06-24] MED LIST changes: +TRAMADOL 50 MG50 MG PO
== END ==
LOC: CAT 06-23 15:00
DX: I71.4 Abdominal aortic aneurysm, without rupture (principal)

== ENCOUNTER → 2018-06-29 | Outpatient (CLI) | payer OTHER | END | disposition home or self-care (01) | LOC: CAT 08:56 | DX: I71.4 Abdominal aortic aneurysm, without rupture (principal); I72.3 Aneurysm of iliac artery; I70.8 Atherosclerosis of other arteries; Z95.0 Presence of cardiac pacemaker; M16.0 Bilateral primary osteoarthritis of hip ==

== ENCOUNTER 2018-07-07 10:21 | Inpatient (IN) | payer OTHER ==
[~2018-07-07] VITALS: Ht 160 cm; Wt 67.5 kg
[2018-07-07] VITALS (10 sets, daily range): BP systolic 72–132; BP diastolic 37–82
[2018-07-07 11:09] LABS: HEMATOCRIT 35.9 % (42.0-52.0); HEMOGLOBIN 11.5 gm/dL (14.0-18.0); MCHC 32.1 g/dL (28.0-37.0); MCV 90.4 fL (80.0-100.0); RBC 3.97 mil/uL (4.50-6.00); WBC 11.4 thou/uL (4.0-11.0)
[2018-07-07 11:24] LABS: CALCIUM 9.3 mg/dL (8.5-10.1); CREATININE 1.4 mg/dL (0.7-1.3)
--- NOTE | 2018-07-07 16:55 | EKG ---
[address] [address] ELECTROCARDIOGRAM REPORT Name: TOMASA MEDINA Room #: 219-P ADM IN M.R.#: [id number] ������������������ Admission: 07/07/18 ������������������ Attend Phys: Rosas Reno MD Discharge: ������������������ Date of : 38 Report #: [id number] ����������������������������������������������������������������� [id number] THIS REPORT FOR: //name// [facility] Test Date: 2018-07-07 Test Time: 11:03:50 Pat Name: TOMASA MEDINA Department: Room: 219 Gender: M Hand Deicer Element Winder: Carlos HERNÁNDEZ : 1940 Requested By: Rosas Reno Order Number: [id number] MD: Carlyle Betancourt Measurements Intervals [place] Rate: 73 P: [place]: QRS: -64 QRSD: 126 T: 143 QT: 425 QTc: 469 Interpretive Statements Afib/flutter Nonspecific IVCD with LAD Inferior infarct, old Abnormal lateral Q waves Compared to ECG 03/04/2018 16:17:45 Electronically Signed On 07-07-2018 16:54:58 INTELLECTUAL PROPERTY MANAGER by Carlyle Betancourt [email or web address] ��������������������������������������������� <ELECTRONICALLY SIGNED> ���������������������������������������� By: Carlyle Betancourt MD ��������������������������������������������� 07/07/18 1654 1103 1103 Carlyle Betancourt MD /EPI
[2018-07-07 20:19] LABS: HEMATOCRIT 29.7 % (42.0-52.0); HEMOGLOBIN 9.9 gm/dL (14.0-18.0)
--- NOTE | 2018-07-07 23:33 | NUR ---
2129: REPORT RECEIVED FROM CIRA BRADY ON 2N. 2199: PT ARRIVED TO ROOM 247 FROM 2N. PT NAUSEATED AND GAGGING UPON ARRIVAL, NO VOMITING. PT PALE, SAVAGE, FOLLOWS COMMANDS, BLE PULSES DIFFICULT TO FIND W/ DOPPLER, VERY VERY WEAK PALPABLE PULSES. RIGHT GROIN SITE OUTLINED W/ MARKER, VERY EDEMATOUS/PURPLE, BUT SOFT. DOPAMINE GTT INFUSING AT 15MCG THROUGH LEFT ANKLE IV. PT MOTTLED AND COLD, TEMP 93.9 AXI. WARM BLANKETS PLACED ON PT. FINGERSTICK 140'S. NUTS AND BOLTS ASSEMBLER AT BEDSIDE PLACED LEJ CATHETER, GREAT BLOOD RETURN, FLUSHES W/ EASE, DOPAMINE GTT CONNECTED AND IVF'S. NOTIFIED DR. VILLARREAL OF PT'S ARRIVAL TO ICU, COLD FEET/WEAK PULSES, LOW BP SBP 80'S, LOW TEMP. ORDERS RECEIVED TO DECREASE DOPAMINE, PT'S NORMAL SBP'S 90'S, 250CC IVF BOLUS, INSERT COLUNGA D/T NO UOP, START LEVOPHED GTT IF PRESSURES DON'T IMPROVE. COLUNGA CATHETER INSERTED WITH IMMEDIATE RETURN OF CLEAR YELLOW URINE 325CC.
[2018-07-08] VITALS (98 sets, daily range): BP systolic 71–129; BP diastolic 29–82
[2018-07-08 02:29] LABS: HEMATOCRIT 27.3 % (42.0-52.0); HEMOGLOBIN 8.7 gm/dL (14.0-18.0); MCH 28.4 pg (26.0-34.0); MCHC 31.8 g/dL (28.0-37.0); MCV 89.5 fL (80.0-100.0); RBC 3.05 mil/uL (4.50-6.00); RDW 19.2 % (10.5-14.5); WBC 11.8 thou/uL (4.0-11.0)
[2018-07-08 02:38] LABS: CALCIUM 7.9 mg/dL (8.5-10.1); CREATININE 1.3 mg/dL (0.7-1.3); POTASSIUM 4.6 mmol/L (3.5-5.1)
--- NOTE | 2018-07-08 05:11 | NUR ---
ASSUMED CARE OF PT AT 2200. ASSESSMENTS PER DOCUMENTATION. DOPAMINE GTT WEANED OFF AFTER LEVOPHED GTT STARTED. BP STABLIZED, REMAINS ON THE SOFT BUT ADEQUATE. BODY TEMP INCREASED TO 98 DEGREES FROM 93.9, FEET/LEGS ARE COOL TO TOUCH INSTEAD OF COLD, WEAK PULSES PALPABLE. MOTTLING DECREASED, COLOR IMPROVED. LEVOPHED WEANED TO 1MCG, IVF INFUSING WITHOUT DIFFICULTY. NO S/S DISTRESS NOTED. HEMATOMA/BRUISING HAS NOT INCREASED IN SIZE, SITE EDEMATOUS, SOFT, SOME OOZING NOTED ON GAUZE, PRESSURE HELD, PT WAS NOTED TO BE COUGHING. ADEQUATE UOP PER COLUNGA. AT BEDSIDE.
--- NOTE | 2018-07-08 08:18 | NUR ---
RECEIVED REPORT; PT. OVER BED ON BED REST; INCISION PURPLE; SOFT; NO EMATOMA; AT SHIFT CHANGE; AROUND 2029; PT. STARTED BLEEDING FROM R. GROIN AREA; DAUGHTER IN LAW PUTTING PRESSURE WHEN ENTER THE ROOM; NOTIFIED; CESSPOOL CLEANER NOTIFIED; ICU NURSE NOTIFIED; HH ORDERED; BOLUS FLUID ORDERED; SBP ON 80'S-60'S; NOTIFIED; DR. VILLARREAL AT BEDSIDE AROUND 2129; PT. MOVED TO ICU. PT. ALERT; SBP OVER 100; PASSED ON REPORT.
--- NOTE | 2018-07-08 09:49 | EKG ---
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1940 Requested By: Grabiel Dumont Order Number: [id number] MD: Perez Miranda Measurements Intervals [place] Rate: 75 P: [place]: QRS: -73 QRSD: 123 T: 155 QT: 413 QTc: 462 Interpretive Statements Atrial flutter with varied AV block, Nonspecific IVCD with LAD Inferior infarct, age indeterminate Compared to ECG 07/07/2018 11:03:50 No significant change was found Electronically Signed On 07-08-2018 9:49:21 AUTOMOBILE UPHOLSTERER by Perez Miranda [email or web address] ��������������������������������������������� <ELECTRONICALLY SIGNED> ���������������������������������������� By: Peerz Miranda MD, [facility] ��������������������������������������������� 07/08/18 0949 9 9 Perez Miranda MD, [facility] /EPI
--- NOTE | 2018-07-08 12:14 | NUR ---
Case opened to follow for dc planning. Pt is currently in the ICU just getting back from the lab clerk. Pt's , son and dtr in law are at bedside. The pt was here last year about this time. Pt continues to live at home with his spouse;however they moved into a ranch style home with only 2 steps to enter through the garage. They have a activities aide that comes in 3 days a week for several hours to help with his personal care. They have needed dme including his home o2 which he uses continuous at 2 liters. This is through [facility]. The pt does not use a cane or a walker due to his lue is contracted from his stroke 8 years ago. His helps with his transfers and short distance gait. They are hoping to dc home and resume his outpt therapy/exercise program. They do not appear interested in HH. Cm role introduced. They will let us know if they have any dc needs or concerns. They noted that he had vasular surgery with 3 stents placed in his leg a few weeks and that has helped. Will follow.
--- NOTE | 2018-07-08 15:36 | NUR ---
SEE VASCULAR ACCESS NOTE FOR DETAILS...4FRDLPICC PLACED LUAB X1 ATTEMPT, PT HAD A RUN OF VTACH WITH FULL INSERTION SO LINE PULLED BACK 3CM WITH NO ISSUES, CXR SHOWED THE TIP IN THE UPPERSVC
--- NOTE | 2018-07-08 17:26 | CATHLAB ---
[facility] [address] [place] [address] INVASIVE PROCEDURE REPORT Name: TOMASA EMDINA Room #: 247-P [facility] IN ..#: [id number] ������������� Admission: 07/07/18 ������������� Attend Phys: Rosas Reno, Discharge: ��� ������������� ��� Date of : 38 Date of Service: 07/08/18 1726 �� Report #: [id number] �������� ��������������������������������������������[id number] THIS REPORT FOR: //name// APPROVED REPORT Study performed: 07/07/2018 13:08:21 Patient Details Patient Status: Out-Patient Room #: The patient is a 78 year-old male Event Personnel Grabiel Dumont Farm Implement Engine Mechanic, Adryan Urena RN, Rosas Mahoney, Marisol Gillis Scrub Procedures Performed Arterial access Right Femoral Arter, SHAYNE Placement w/wo Plasty single Circ [id number], Hemostasis Manual pressure Indication Chest pain Procedure Narrative The patient was brought electively to the Cardiac Catheterization Laboratory and was prepped and draped in a sterile manner. A 6 fr sheath pinnacle sheath was inserted into the right femoral artery. Coronary angiography was performed using coronary diagnostic catheters. The left coronary system was accessed and visualized with a EBU 3.5 Guide catheter catheter. Hemostasis was obtained with manual pressure following sheath removal without any complications. The patient tolerated the procedure well and there were no complications associated with the procedure. There was no hematoma. Fluoro Time: 9.1 minutes Dose: DAP 3327 cGycm2 367 mGy Contrast Type and Amount: Visipaque 55 Hemodynamics The aortic pressure is 102/54 mmHg with a mean of 74 mmHg. PCI Technique Lesion A EBU 3.5 Guide Catheter was used to engage the ostium. A Luge Wire Interventional Guidewire was used to cross the lesion. [facility] [address] [address] INVASIVE PROCEDURE REPORT Name: ADAMTOMASA ANDREA Room #: 247-P [facility] IN ..#: [id number] ������������� Admission: 07/07/18 ������������� Attend Phys: Rosas Reno, Discharge: ��� ������������� ��� Date of : 38 Date of Service: 07/08/18 1726 �� Report #: [id number] �������� ��������������������������������������������[id number] BALLOON DILATION A Balloon catheter Sprinter 2.25 x 12 was inserted and inflated up to 8atm for 17seconds. Additional Inflation: 18atm for 23seconds. Additional Inflation: 18atm for 20seconds. STENT DEPLOYMENT A drug-eluting stent Medtronic Resolute Salomon OTW 2.5 x 12 was inserted and inflated up to 20atm for 29seconds. Additional Inflation: 20atm for 17seconds. Conclusion #1 successful PTCA stent of a mid circumflex OM subtotaled lesion to 0% with placement of a 2.5 x 12 Salomon drug-eluting stent postdilated 2.8 mm healing ARIE grade 3 flow no dissection or thrombus formation Recommendations and plan: this was a staged procedure. Patient tolerated well with minimal contrast. Peripheral intervention to left SFA and iliac system by Dr. Reno to follow. 80 mL of contrast was utilized. We'll initiate dual antiplatelet therapy. ��������������������������������������������� <ELECTRONICALLY SIGNED> ���������������������������������������� By: Grabiel Dumont MD, [facility] ��������������������������������������������� 07/08/18 1726 25 25 Grabiel Dumont MD, [facility] /INF
--- NOTE | 2018-07-08 20:30 | NUR ---
END OF SHIFT NOTE. US LE DONE DUE TO CONTINUED MOTTLED. LE. PT STATES PT IS ALWAYS LIKE THIS. TITRATING LEVOPHED FOR SBP 90. R GROIN REMAINS SOFT. CONTINUING BEDREST FOR PRECAUTION.
[2018-07-08 23:28] LABS: HEMATOCRIT 22.7 % (42.0-52.0); HEMOGLOBIN 7.6 gm/dL (14.0-18.0)
[2018-07-09] VITALS (48 sets, daily range): BP systolic 73–126; BP diastolic 38–70
--- NOTE | 2018-07-09 04:23 | NUR ---
ASSUMED CARE OF PATIENT AT 1900. AFEBRILE. ABLE TO ANSWER SIMPLE QUESTIONS. GROIN SITE ASSESSED, MARKED FOR BRUISING AND SLIGHT DRAINAGE ON DRESSING. PEDAL PULSES PALPABLE, VERY COOL EXTREMETIES. BP LOW, LEVO TRITRATED TO KEEP MAP ABOVE 65. SEE FLOW SHEET. FLUIDS INFUSING. COLUNGA WITH ADEQUATE OUTPUT. FAMILY AT BEDSIDE, UPDATED ON POC. PROGRESSING SLOWLY. WILL CONTINUE TO MONITOR.
[2018-07-09 05:15] LABS: HEMATOCRIT 22.5 % (42.0-52.0); HEMOGLOBIN 7.4 gm/dL (14.0-18.0); MCH 29.3 pg (26.0-34.0); MCHC 32.9 g/dL (28.0-37.0); MCV 89.2 fL (80.0-100.0); RBC 2.53 mil/uL (4.50-6.00); RDW 19.2 % (10.5-14.5); WBC 6.6 thou/uL (4.0-11.0)
[2018-07-09 05:35] LABS: ALBUMIN 2.4 g/dL (3.4-5.0); TOTAL BILIRUBIN 0.9 mg/dL (<0.1-1.0); TOTAL PROTEIN 4.7 g/dL (6.4-8.2)
--- NOTE | 2018-07-09 08:42 | EKG ---
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1940 Requested By: Grabiel Dumont Order Number: [id number] MD: Perez Miranda Measurements Intervals [place] Rate: 73 P: [place]: QRS: -70 QRSD: 126 T: 121 QT: 408 QTc: 450 Interpretive Statements Atrial flutter with predominant 4:1 AV block Nonspecific IVCD with LAD Nonspecific T wave abnormality Compared to ECG 07/08/2018 09:00:45 No significant change was found Electronically Signed On 07-09-2018 8:42:20 BRIDAL CONSULTANT by Perez Miranda [email or web address] ��������������������������������������������� <ELECTRONICALLY SIGNED> ���������������������������������������� By: Perez Miranda MD, [facility] ��������������������������������������������� 07/09/18 0842 0609 0609 Perez Miranda MD, [facility] /EPI
[2018-07-09 12:18] LABS: HEMATOCRIT 22.3 % (42.0-52.0); HEMOGLOBIN 7.5 gm/dL (14.0-18.0); MCH 29.8 pg (26.0-34.0); MCHC 33.8 g/dL (28.0-37.0); MCV 88.3 fL (80.0-100.0); RBC 2.53 mil/uL (4.50-6.00); RDW 19.3 % (10.5-14.5); WBC 8.2 thou/uL (4.0-11.0)
[2018-07-09] MEDS ORDERED: CLOPIDOGREL75 MG PO (16:06)
[2018-07-09 20:59] LABS: HEMATOCRIT 20.8 % (42.0-52.0); MCH 29.9 pg (26.0-34.0); MCHC 33.9 g/dL (28.0-37.0); MCV 88.3 fL (80.0-100.0); RBC 2.35 mil/uL (4.50-6.00); RDW 19.4 % (10.5-14.5); WBC 6.3 thou/uL (4.0-11.0)
[2018-07-09 21:02] LABS: CALCIUM 8.4 mg/dL (8.5-10.1); CREATININE 1.3 mg/dL (0.7-1.3); POTASSIUM 4.8 mmol/L (3.5-5.1)
[2018-07-09 21:08] LABS: PROTIME 10.6 Seconds (9.3-11.4)
[2018-07-10] VITALS (62 sets, daily range): BP systolic 88–149; BP diastolic 37–79
--- NOTE | 2018-07-10 00:26 | NUR ---
ASSUMED CARE OF PATIENT AT 1900. BP SOFT, DR SOTOMAYOR NOTIFIED. ORDERS FOR FLUIDS OBTAINED. FINANCE ATTORNEY IN ROOM, SHE SPOKE WITH DR VILLARREAL. HE ORDERED LABS WELL. HGB REPORTED TO DR VILLARREAL. ORDER FOR 1 UNIT OF BLOOD OBTAINED. TRANSFUSING AT THIS TIME. BP WITHIN NORMAL LIMITS. FAMILY AT BEDSIDE AND EDUCATED. NO S/S OF DISTRESS. WILL CONTINUE TO MONITOR.
[2018-07-10 03:00] LABS: HEMATOCRIT 25.2 % (42.0-52.0); HEMOGLOBIN 8.2 gm/dL (14.0-18.0); MCH 28.7 pg (26.0-34.0); MCHC 32.6 g/dL (28.0-37.0); RBC 2.87 mil/uL (4.50-6.00); RDW 19.2 % (10.5-14.5); WBC 5.3 thou/uL (4.0-11.0)
[2018-07-10 11:30] LABS: HEMATOCRIT 27.4 % (42.0-52.0)
--- NOTE | 2018-07-14 13:59 | HC ---
[facility] [place] [address] CONSULTATION Name: TOMASA MEDINA Room #: 247-P [facility] IN M.R.#: [id number] Admission: 07/07/18 ������������������ Attend Phys: Rosas Reno MD Discharge: 07/10/18 ������������������ Date of : 39 Report #: [id number] THIS REPORT FOR: //name// CC: Rosas Spain Tim Phillip Melva DATE OF SERVICE: 07/08/2018 We were asked by Dr. Reno to see the patient. HISTORY OF PRESENT ILLNESS: The patient is a 78-year-old with abdominal aortic aneurysm. The patient has a complex history that includes myocardial infarct approximately 10 years ago along with a stroke 10 years ago thought to be embolic from atrial fibrillation. The patient has been left with a right side hemiplegia and aphasia from this left hemispheric stroke. The patient continues to have atrial fibrillation and flutter. He also has coronary artery disease for which multiple stents have been placed and peripheral arterial occlusive disease with recent iliac and extensive right superficial femoral artery stent placement. We note that the most recent arteriogram was yesterday and after a sheath was removed, the patient had a bleed on the floor and this led the patient to be returned to the ICU for fluid replacement and pressors. PAST MEDICAL HISTORY: Also significant for hypertension, hyperlipidemia, chronic obstructive pulmonary disease with home oxygen and AICD placement. MEDICATIONS: At home includes aspirin, Atrovent, albuterol, AccuNeb, Salmeterol, Xopenex, Flomax, Pradaxa, atorvastatin, nebivolol, Benicar, Ultram, Lasix, prednisone, Pulmicort, pantoprazole and potassium. ALLERGIES: THE PATIENT IS ALLERGIC TO LEVOFLOXACIN. FAMILY HISTORY: Not significant for precocious coronary vascular disease. SOCIAL HISTORY: The patient is and is a smoker. REVIEW OF SYSTEMS: Not obtainable from the patient as he has aphasia. According to the family, the patient was in his usual health until the recent arteriogram without symptoms of infection such as fever. The patient has limited ability to walk due to coronary artery disease and peripheral vascular disease with right leg claudication that was treated with the recent stent placement. Neurologically, as mentioned, the patient has chronic hemiplegia of the right side particularly the right arm and is aphasic. He can only give one word answers to questions. He does appear to them to be alert and is able to do [facility] [address] [place] [address] CONSULTATION Name: LIVIERGLORIATOMASA GEORGE ANDREA Room #: 247-P [facility]#: [id number] Admission: 07/07/18 ������������������ Attend Phys: Rosas Reno MD Discharge: 07/10/18 ������������������ Date of : 38 Report #: [id number]. PHYSICAL EXAMINATION: GENERAL: The patient is lying in bed, resting. He seems alert, but drowsy. VITAL SIGNS: Blood pressure 105/56, heart rate 74, he appears to be in atrial flutter now, respiratory rate 13 and temperature 36.7. HEENT: No scleral icterus. NECK: No mass and no bruit. CHEST: Clear anteriorly. HEART: Rhythm regular and no murmur audible. ABDOMEN: Soft. EXTREMITIES: Hematoma, right groin; has a reticular vascular pattern in the legs, which are tepid. I do not feel distal pulses. No evidence of skin lesions or infections. NEUROLOGIC: The patient is aphasic and does not move his right side. MUSCULOSKELETAL: No obvious asymmetry or deformity. We note that the abdominal aneurysm has been said to grow from 3.7 to 4.5 cm by serial CAT scan over the last year or so and this is the indication for intervention. I discussed the risks and details of stent graft implant with the patient's family. These include but are not limited to bleeding, infection, anesthesia risks and of course the imponderables of endoleak. The size and the clinical setting do not mandate emergent treatment and obviously in consult with Dr. Reno, we should find a time that would be optimal. From the patient's point of view, it might be nice to let a few weeks pass to allow the hematoma on the right groin to resolve. The patient's family understands all of this and agrees. Thank you for the consult. ��������������������������������������������� <ELECTRONICALLY SIGNED> ���������������������������������������� By: David Nguyen MD ��������������������������������������������� 07/14/18 1359 1402 0124 David Nguyen MD /nt
== END 2018-07-10 16:00 | disposition home or self-care (01) | DRG 271 ==
LOC: CATH 10:21 → 2N 16:48 → ICU 16:48 → 2N 23:02 → ICU 23:16
PROVIDERS: Nuclear Medicine Nuclear Cardiology; Nurse Practitioner Adult Health; ADMIT Internal Medicine Cardiovascular Disease
PROC: 047H3DZ Dilation of Right External Iliac Artery with Intraluminal Device, Percutaneous Approach (ICD-10-PCS; principal; 2018-07-07)
PROC: 027034Z Dilation of Coronary Artery, One Artery with Drug-eluting Intraluminal Device, Percutaneous Approach (ICD-10-PCS; principal; 2018-07-07)
PROC: B211YZZ Fluoroscopy of Multiple Coronary Arteries using Other Contrast (ICD-10-PCS; principal; 2018-07-07)
PROC: 047L3D1 Dilation of Left Femoral Artery with Intraluminal Device, using Drug-Coated Balloon, Percutaneous Approach (ICD-10-PCS; principal; 2018-07-07)
PROC: 04CL3ZZ Extirpation of Matter from Left Femoral Artery, Percutaneous Approach (ICD-10-PCS; principal; 2018-07-07)
PROC: 02HV33Z Insertion of Infusion Device into Superior Vena Cava, Percutaneous Approach (ICD-10-PCS; 2018-07-08)
PROC: 30233N1 Transfusion of Nonautologous Red Blood Cells into Peripheral Vein, Percutaneous Approach (ICD-10-PCS; 2018-07-09)
DX: I73.9 Peripheral vascular disease, unspecified (principal); I48.92 Unspecified atrial flutter; D62 Acute posthemorrhagic anemia; I25.10 Atherosclerotic heart disease of native coronary artery without angina pectoris; I10 Essential (primary) hypertension; E78.00 Pure hypercholesterolemia, unspecified; I71.4 Abdominal aortic aneurysm, without rupture; J44.9 Chronic obstructive pulmonary disease, unspecified; Z79.899 Other long term (current) drug therapy; Z88.1 Allergy status to other antibiotic agents; Z86.73 Personal history of transient ischemic attack (TIA), and cerebral infarction without residual deficits; Z95.0 Presence of cardiac pacemaker
CPT/HCPCS: 10078; 27000

== ENCOUNTER → 2018-08-17 | Outpatient (CLI) | payer OTHER ==
[~2018-08-17] MED LIST changes: +CLOPIDOGREL75 MG PO
== END ==
LOC: RAD 11:38
DX: J44.9 Chronic obstructive pulmonary disease, unspecified (principal); J98.4 Other disorders of lung; D50.0 Iron deficiency anemia secondary to blood loss (chronic)

== ENCOUNTER → 2018-09-03 | Outpatient (CLI) | payer OTHER | LOC: RAD 11:03 | DX: J98.11 Atelectasis (principal); I51.7 Cardiomegaly; J98.4 Other disorders of lung ==

== ENCOUNTER → 2019-06-18 | Outpatient (CLI) | payer OTHER | LOC: SJCVC 14:12 | DX: Z45.02 Encounter for adjustment and management of automatic implantable cardiac defibrillator (principal); I42.9 Cardiomyopathy, unspecified; I25.10 Atherosclerotic heart disease of native coronary artery without angina pectoris; I11.0 Hypertensive heart disease with heart failure; I50.23 Acute on chronic systolic (congestive) heart failure; I48.91 Unspecified atrial fibrillation; I49.5 Sick sinus syndrome; E78.00 Pure hypercholesterolemia, unspecified; J44.9 Chronic obstructive pulmonary disease, unspecified; I73.9 Peripheral vascular disease, unspecified; I25.5 Ischemic cardiomyopathy; I71.4 Abdominal aortic aneurysm, without rupture; Z79.82 Long term (current) use of aspirin; Z79.899 Other long term (current) drug therapy; Z86.73 Personal history of transient ischemic attack (TIA), and cerebral infarction without residual deficits; Z87.891 Personal history of nicotine dependence; Z95.810 Presence of automatic (implantable) cardiac defibrillator ==

== ENCOUNTER → 2019-12-27 | Outpatient (CLI) | payer OTHER | LOC: SJCVCIMAG 08:33 | PROVIDERS: ATTEND Internal Medicine Cardiovascular Disease | DX: Z45.02 Encounter for adjustment and management of automatic implantable cardiac defibrillator (principal); I71.4 Abdominal aortic aneurysm, without rupture; I72.8 Aneurysm of other specified arteries; I42.9 Cardiomyopathy, unspecified; I25.10 Atherosclerotic heart disease of native coronary artery without angina pectoris; I25.5 Ischemic cardiomyopathy; I10 Essential (primary) hypertension; I48.91 Unspecified atrial fibrillation; I49.5 Sick sinus syndrome; R47.01 Aphasia; E78.00 Pure hypercholesterolemia, unspecified; I77.1 Stricture of artery; J44.9 Chronic obstructive pulmonary disease, unspecified; Z95.820 Peripheral vascular angioplasty status with implants and grafts; Z95.810 Presence of automatic (implantable) cardiac defibrillator; Z86.73 Personal history of transient ischemic attack (TIA), and cerebral infarction without residual deficits; Z82.49 Family history of ischemic heart disease and other diseases of the circulatory system; Z79.899 Other long term (current) drug therapy; Z87.891 Personal history of nicotine dependence ==

== ENCOUNTER 2020-02-12 10:28 | Emergency (ER) | payer OTHER ==
[~2020-02-12] VITALS: Ht 162.6 cm; Wt 54.9 kg
[2020-02-12 12:01] LABS: BASOPHILS 0.4 % (0.0-2.0); EOSINOPHILS 1.7 % (0.0-3.0); HEMATOCRIT 37.8 % (42.0-52.0); HEMOGLOBIN 12.2 gm/dL (14.0-18.0); LYMPHOCYTES 5.1 % (24.0-44.0); MCH 30.2 pg (26.0-34.0); MCHC 32.1 g/dL (28.0-37.0); MCV 94.1 fL (80.0-100.0); MONOCYTES 9.2 % (1.0-8.0); PLATELET COUNT 180 thou/uL (150-400); POLYS 83.6 % (36.0-66.0); RBC 4.02 mil/uL (4.50-6.00); WBC 9.6 thou/uL (4.0-11.0)
[2020-02-12 12:05] LABS: CALCIUM 9.1 mg/dL (8.5-10.1); CREATININE 1.3 mg/dL (0.7-1.3); POTASSIUM 4.6 mmol/L (3.5-5.1)
[2020-02-12 12:18] LABS: ALBUMIN 3.1 g/dL (3.4-5.0); DIRECT BILIRUBIN 0.2 mg/dL (<0.1-0.2); TOTAL BILIRUBIN 0.7 mg/dL (0.2-1.0); TOTAL PROTEIN 6.9 g/dL (6.4-8.2)
[2020-02-12] MEDS ORDERED: DOXYCYCLINE 10100 MG PO (14:50)
[2020-02-12 15:00] VITALS: BP 119/72
== END 2020-02-12 15:04 | disposition home or self-care (01) ==
LOC: ER 10:28
PROVIDERS: Nurse Practitioner
DX: L03.116 Cellulitis of left lower limb (principal); I48.91 Unspecified atrial fibrillation; I25.2 Old myocardial infarction; J44.9 Chronic obstructive pulmonary disease, unspecified; E78.5 Hyperlipidemia, unspecified; K21.9 Gastro-esophageal reflux disease without esophagitis; I13.0 Hypertensive heart and chronic kidney disease with heart failure and stage 1 through stage 4 chronic kidney disease, or unspecified chronic kidney disease; N18.30 Chronic kidney disease, stage 3 unspecified; I50.22 Chronic systolic (congestive) heart failure; I25.10 Atherosclerotic heart disease of native coronary artery without angina pectoris; Z86.711 Personal history of pulmonary embolism; Z95.5 Presence of coronary angioplasty implant and graft; Z86.73 Personal history of transient ischemic attack (TIA), and cerebral infarction without residual deficits; Z79.899 Other long term (current) drug therapy; Z88.1 Allergy status to other antibiotic agents; Z87.891 Personal history of nicotine dependence

== ENCOUNTER → 2020-09-27 | Outpatient (CLI) | payer OTHER ==
[~2020-09-27] MED LIST changes: +DOXYCYCLINE 10100 MG PO
== END ==
LOC: SJCVCIMAG 09:03
PROVIDERS: ATTEND Internal Medicine Cardiovascular Disease
DX: I08.3 Combined rheumatic disorders of mitral, aortic and tricuspid valves (principal); I11.9 Hypertensive heart disease without heart failure; I25.10 Atherosclerotic heart disease of native coronary artery without angina pectoris; E78.00 Pure hypercholesterolemia, unspecified; I49.5 Sick sinus syndrome; I25.5 Ischemic cardiomyopathy; I48.91 Unspecified atrial fibrillation; I71.4 Abdominal aortic aneurysm, without rupture; I65.29 Occlusion and stenosis of unspecified carotid artery; J44.9 Chronic obstructive pulmonary disease, unspecified; I48.0 Paroxysmal atrial fibrillation; Z88.8 Allergy status to other drugs, medicaments and biological substances; Z79.899 Other long term (current) drug therapy; Z86.73 Personal history of transient ischemic attack (TIA), and cerebral infarction without residual deficits; Z87.891 Personal history of nicotine dependence; Z82.49 Family history of ischemic heart disease and other diseases of the circulatory system

== ENCOUNTER 2020-10-15 14:24 | Inpatient (IN) | payer OTHER ==
[~2020-10-15] VITALS: Ht 162.6 cm; Wt 60.3 kg
--- NOTE | ~2020-10-15 | EMS ---
[place] [id number] EMS Patient Care Report Name: TOMASA MEDINA Room #: REG [facility] ELLEN Roque#: [id number] Admission: 10/15/20 Attend Phys: Discharge: Date of : 38 Report #: [id number] THIS REPORT FOR: //name// Report Transmitted: 10/15/2020 14:41 EMS Care Summary [place], [place]/[facility] Incident [id number] @ 10/15/2020 13:57 Incident Location [address] [place] [address] Patient TOMASA MEDINA Male, 80 Years 1940 Patient Address [address] [place] [address] Patient History Congestive Heart Failure (CHF),Chronic Obstructive Pulmonary Disease (COPD),Stroke/CVA,Atrial Fibrillation, Patient Allergies Other drug allergy, Patient Medications Other, Warfarin, Xarelto, Atorvastatin, Zithromax, Augmentin, Xopenex, Albuterol, Protonix, Prednisone, Torsemide, Toprol, Chief Complaint BREATHING PROBLEM Disposition Transported [place] Reason Breathing Problem Transported To [facility] Narrative ARRIVED ON SCENE TO FIND PT SITTING UPRIGHT IN BED WITH A BLOW BY MASK AND AN NEB TREATMENT. DAUGHTER WAS ON SCENE AND WAS KNOWLEDGABLE [place] [id number] EMS Patient Care Report Name: TOMASA MEDINA Room #: REG [facility]#: [id number] Admission: 10/15/20 Attend Phys: Discharge: Date of : 38 Report #: [id number] HIS BREATHING PROBLEMS. DAUGHTER REPORTS PT LOW O2 FOR APPROX 30 MINUTES WITH THE LOWEST BEING 60%. PT SATS UPON EMS ARRIVAL WAS 73% ON THE [place] MASK WITH BREATHING TREATMENT. PT IS CONFUSED NORMALLY DUE TO PREVIOUS STROKE. DAUGHTER REPROTS HE HAS BEEN FIGHTING PNEUMONIA AND IS CURRENTLY A FULL CODE. PT HAD POOR RESPIRATORY EFFORT. PT SPOKE IN 1 WORD SENTENCES WHICH ISN'T ABNORMAL DUE TO HIS PREVIOUS STROKE HISTORY. PT WAS PLACED ON C-PAP AND HAD IMPROVEMENT, BUT O2 SATS WERE STILL LOW FOR WHATS NORMAL FOR HIM; DAUGHTER REPORTS 92% IS NORMAL O2 SAT. PT MAINTAINED 88-90% ON CPAP WITH A NEB. PT WAS TRANSPORTED EMERGENT WITHOUT INCIDENT. PT WAS TRANSFERRED TO ER BED VIA FOUR POINT LIFT; RAILS RAISED. PT REPORT GIVEN TO RN AND PT CARE TRANSFERRED. Initial Vitals @14:05P: 71,SpO2: 78, @14:09P: 85,SpO2: 81, @14:17P: 99,R: 24,BP: 148/71,Pain: 0/10,GCS: 14,CO: 3,SpO2: 90,Revised Trauma: 12, @14:05P: 72,R: 24,BP: 144/76,Pain: 0/10,GCS: 14,Glucose: 196,SpO2: 77,Revised Trauma: 12, Assessments @14:04MENTAL:Confused,SKIN:Cyanotic,Pale,HEENT:Head/Face: Facial Droop,Neck/Airway: Other,LUNG SOUNDS:General: Other,ABDOMEN:General: Other,PELVIS//GI:No Abnormalities,EXTREMITIES:Left Arm: Paralysis,Right Leg: Other,Right Arm: No Abnormalities,Left Leg: No Abnormalities,PULSE:Radial: 2+ Normal,NEURO:Weakness Right-Sided,Facial Droop, Impression Acute Respiratory Distress (Dyspnea) Procedures @14:04ALS AssessmentResponse: UnchangedSucceeded@14:09CPAP FlowRate: 10 Response: ImprovedSucceeded@14:103-Lead ECGResponse: UnchangedSucceeded@14:11Saline Lock 8cc (24 ga) Site: Forearm-LeftResponse: UnchangedSucceeded@14:12Albuterol - 2.5 Milligrams (mg) - NebulizedResponse: Improved@14:18Albuterol - 2.5 Milligrams (mg) - NebulizedResponse: Improved Timeline 13:56,Call Received 13:56,Dispatch Notified 13:57,Dispatched 13:57,En Route 14:03,On Scene 14:04,At Patient 14:04,ALS Assessment,Response: UnchangedSucceeded, 14:05,BP: / M,PULSE: 71,RR: R,SPO2: 78 Ox,ETCO2: ,BG: ,PAIN: ,GCS: , 14:05,BP: 144/76 M,PULSE: 72,RR: 24 R,SPO2: 77 Ox,ETCO2: ,B,PAIN: 0,GCS: [address] [address] EMS Patient Care Report Name: LIVIERTOMASA CHILDRESS Jaspal Room #: REG [facility].#: [id number] Admission: 10/15/20 Attend Phys: Discharge: Date of : 38 Report #: [id number] 14, 14:09,CPAP FlowRate: 10 Response: ImprovedSucceeded, 14:09,BP: / M,PULSE: 85,RR: R,SPO2: 81 Ox,ETCO2: ,BG: ,PAIN: ,GCS: , 14:10,3-Lead ECG,Response: UnchangedSucceeded, 14:11,Saline Lock 8cc 24 ga Site: Forearm-Left,Response: UnchangedSucceeded, 14:12,Albuterol - 2.5 Milligrams (mg) - Nebulized,Response: Improved 14:15,Depart Scene 14:17,BP: 148/71 M,PULSE: 99,RR: 24 R,SPO2: 90 Ox,ETCO2: ,BG: ,PAIN: 0,GCS: 14, 14:18,Albuterol - 2.5 Milligrams (mg) - Nebulized,Response: Improved 14:20,At Destination 14:45,Call Closed Disclaimer v1.1 Copyright 2020 [employer] This EMS Care Summary contains data elements from the applicable legal record (which may be displayed differently). It is designed to provide pertinent information for the following purposes: continuity of care, clinical quality, and state data reporting. The complete legal record is available to ED staff and administrators of the receiving hospital in [employer] Patient Tracker. All data is provided "as is."
[2020-10-15 14:25] VITALS: BP 140/71
[2020-10-15 15:21] LABS: ABSOLUTE NEUTROPHILS 6.9 thou/uL (1.4-8.2); BASOPHILS 0.3 % (0.0-2.0); EOSINOPHILS 0.7 % (0.0-3.0); HEMATOCRIT 31.4 % (42.0-52.0); HEMOGLOBIN 10.1 gm/dL (14.0-18.0); LYMPHOCYTES 4.5 % (24.0-44.0); MCH 30.4 pg (26.0-34.0); MCHC 32.2 g/dL (28.0-37.0); MCV 94.3 fL (80.0-100.0); MONOCYTES 2.6 % (1.0-8.0); PLATELET COUNT 227 thou/uL (150-400); POLYS 91.9 % (36.0-66.0); RBC 3.33 mil/uL (4.50-6.00); RDW 16.9 % (10.5-14.5); WBC 7.6 thou/uL (4.0-11.0)
[2020-10-15 15:23] LABS: CREATININE 1.3 mg/dL (0.7-1.3); POTASSIUM 4.7 mmol/L (3.5-5.1)
--- NOTE | 2020-10-15 15:30 | NUR ---
PT SPOUSE AT BEDSIDE NOTES THAT PT WAS JUST SEEN AND D/C FROM [facility] AFTER HAVING A FALL. PT IS STATED TO BE MOSTLY WHEELCHAIR BOUND BUT CAN STAND AND PIVOT WITH ASSISTANCE. PT SPOUSE STATES THAT DURING THAT TIME PT HAD "SEVERAL RUNS" OF VTACH AND HAS NOW BEEN STARTED ON METOPROLOL. PT HAS BANDAGE ON RIGHT FOR STATED SKIN TEAR AFTER FALL. PT BOTH UPPER EXTREMITIES HAVE MINOR SCATTERED ABRAISION AND ARE BRUISED. PT STATES YES AND NO RESPONSES ARE BASELINE FOR HIM POST STROKE YEARS BACK. PT STATES THAT THEY USE THICKEND LIQUIDS AND PT DOES NOT HAVE TROUBLE SWALLOWING.
[2020-10-15 15:33] LABS: ALBUMIN 2.6 g/dL (3.4-5.0); DIRECT BILIRUBIN 0.2 mg/dL (<0.1-0.2); PHOSPHORUS 3.6 mg/dL (2.6-4.7); TOTAL BILIRUBIN 0.7 mg/dL (0.2-1.0); TOTAL PROTEIN 6.4 g/dL (6.4-8.2); TROPONIN-I 0.16 ng/mL (<0.06)
[2020-10-15 15:48] LABS: BE(vivo) 14.1 mmol/L (-2 to +3); HCO3 41.8 mmol/L (22.0-26.0); PCO2 71.1 mmHg (35.0-45.0); PO2 65.8 mmHg (80.0-100.0); pH 7.387 (7.360-7.450); sO2 91.9 % (92.0-98.0)
--- NOTE | 2020-10-15 16:57 | NUR ---
HOSPITALIST AT BEDSIDE GOING OVER CARE PLAN WITH PT, PT AND PT SON
[2020-10-15] MEDS ORDERED: AUGMENTIN 875-1 EACH PO (18:09)
[2020-10-15] MEDS ORDERED: AZITHROMYCIN500 MG PO (18:10)
[2020-10-15] MEDS ORDERED: TOPROL XL25 MG PO (18:11)
[2020-10-15] MEDS ORDERED: PREDNISONE 10 M10 MG PO (18:12)
[2020-10-15] MEDS ORDERED: XARELTO15 MG PO (18:14)
[2020-10-15] MEDS ORDERED: TORSEMIDE20 MG PO (18:15)
--- NOTE | 2020-10-15 19:11 | NUR ---
REPORT GIVEN TO CIRA BARKSDALE AT THIS TIME
[2020-10-15 20:26] VITALS: BP 111/59
[2020-10-15 20:48] VITALS: BP 111/59
[2020-10-15 21:03] VITALS: BP 115/68
[2020-10-15 21:42] VITALS: BP 117/57
[2020-10-16] VITALS (8 sets, daily range): BP systolic 100–134; BP diastolic 55–95
[2020-10-16 04:53] LABS: HEMATOCRIT 29.2 % (42.0-52.0); HEMOGLOBIN 9.4 gm/dL (14.0-18.0); MCH 30.3 pg (26.0-34.0); MCHC 32.1 g/dL (28.0-37.0); MCV 94.3 fL (80.0-100.0); RBC 3.1 mil/uL (4.50-6.00); RDW 17.3 % (10.5-14.5); WBC 4.1 thou/uL (4.0-11.0)
[2020-10-16 05:13] LABS: CALCIUM 8.5 mg/dL (8.5-10.1); CREATININE 1.2 mg/dL (0.7-1.3); POTASSIUM 4.6 mmol/L (3.5-5.1); TROPONIN-I 0.11 ng/mL (<0.06)
--- NOTE | 2020-10-16 06:09 | NUR ---
PT ADMITTED TO ROOM 201 FROM ER, ARRIVED WITH FAMILY, PT NON VERBAL FROM PREVIOUS CVA AND RIGHT SIDED WEAKNESS, CONDOM CATHETER IN PLACE, VSS, NO C/O PAIN REPOSITIONED NEEDED, OLD SKIN TEARS FROM ADMISSION TO [facility] FOR RECENT FALL WAS DISCHARGED FRIDAY TO HOME, ON BIPAP IN ER AND CHANGED BACK TO N/C AND NOW AT 3L WHICH IS PT'S BASELINE AT HOME. WILL CON'T TO MONITOR PER PPOC.
--- NOTE | 2020-10-16 07:17 | EKG ---
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1940 Requested By: Chago Whitehead Order Number: [id number] MD: Juan Alberto Collier Measurements Intervals [place] Rate: 71 P: [place]: QRS: -53 QRSD: 123 T: 125 QT: 422 QTc: 459 Interpretive Statements Atrial flutter with predominant 4:1 AV block Nonspecific IVCD with LAD Left ventricular hypertrophy Nonspecific T abnormalities, lateral leads Compared to ECG 07/09/2018 06:09:00 Left ventricular hypertrophy now present T-wave abnormality still present Electronically Signed On 10-16-2020 7:17:16 CDT by Juan Alberto Collier [email or web address] <ELECTRONICALLY SIGNED> By: Juan Alberto Collier MD, [facility] 10/16/20 0717 1457 1457 Juan Alberto Colleir MD, [facility] /EPI
--- NOTE | 2020-10-16 11:48 | NUR ---
CM S/W WITH PT'S , MARU. PT STATED PT HAS APHASIA. LIVES HOME AND REQUIRES ASSISTANCE WITH ADLS. PT HAS PRIVATE DUTY C/G IN HOME 3-5 DAYS/WK. PT USES O2 AT HOME ON 3L THRU [facility] [place] PATIENT. PT HAS HX IN LTC AND ACUTE RE[facility]AB [facility]. MARU BELIEVES PT MAY BENEFIT FROM HH AT D/C. CM TO CONT TO FOLLOW.
--- NOTE | 2020-10-16 15:31 | NUR ---
Nutrition: RD received consult stating poor intake. Pt with PMH CVA, COPD, HI, CKD. S/W pt's who reports pt always has a good appetite and has not had any weight changes. UBW around 120#. Requires nectar thick liquids, mech soft with assist and also at home. No intervention planned. Low nutrition risk.
[2020-10-17] VITALS (7 sets, daily range): BP systolic 105–146; BP diastolic 55–102
--- NOTE | 2020-10-17 04:08 | NUR ---
PT RESTING QUIETLY IN ROOM TOLERATING NECTAR THISCK LIQUIDS WITH OUT ANY DIFFICULTY, VSS, REPOSITIONED NEEDED, NO C/O PAIN, ANSWERS QUESTIONS WITH SHAKING HEAD Y AND N, FAMILY TO BRING IN HOME MEDS IN AM, WILL CONT TO MONITOR PER PPOC.
[2020-10-17 04:57] LABS: HEMATOCRIT 27.5 % (42.0-52.0); HEMOGLOBIN 8.9 gm/dL (14.0-18.0); MCH 30.5 pg (26.0-34.0); MCHC 32.2 g/dL (28.0-37.0); MCV 94.8 fL (80.0-100.0); RBC 2.9 mil/uL (4.50-6.00); WBC 10.4 thou/uL (4.0-11.0)
[2020-10-17 05:23] LABS: CALCIUM 8.5 mg/dL (8.5-10.1); CREATININE 1.5 mg/dL (0.7-1.3); POTASSIUM 4.7 mmol/L (3.5-5.1)
--- NOTE | 2020-10-17 13:24 | NUR ---
Pt's spouse prefers to take pt home and resume home care services w/ [facility]. SW contacted [facility] who has been in contact w/ pt and spouse. [facility] to resume home care upon D/C
--- NOTE | 2020-10-17 18:46 | NUR ---
PT CARE ASSUMED AT 0700. ASSESSMENTS CHARTED. MEDICATIONS CHARTED. LFA IV. ATRIAL FLUTTER. CONDOM CATHETER. O2 3LPM NC. WOUNDS; RT FOREARM, LT WRIST DRESSED BY WOUND RN. ACHS; MECHANICAL SOFT/NECTAR. BEDREST. POSSIBLE HOME WITH HOME HEALTH.
[2020-10-18] VITALS (7 sets, daily range): BP systolic 97–146; BP diastolic 59–91
--- NOTE | 2020-10-18 06:31 | NUR ---
ASSUMED PT CARE AT 1900, PT IS AWAKE, ANSWERS TO YES/NO QUESTIONS, C/O PAIN, TYL GIVEN WITH RELIEF, AFLUTTER ON TELE, MEDS GIVEN PER JUL, ASSESSMENTS CHARTED, NO NEEDS, WILL CONTINUE TO MONITOR, WILL PASS ON REPORT
--- NOTE | 2020-10-18 09:33 | NUR ---
BPCI letter and preferred network list provided to patient and family, lives in home setting
[2020-10-18] MEDS ORDERED: PREDNISONE 10 M10 MG PO (12:30)
[2020-10-18] MEDS ORDERED: AUGMENTIN 875-1 EACH PO (12:30)
--- NOTE | 2020-10-18 14:23 | NUR ---
5n DECLINED PATIENT, FAMILY PREFERS HOME WITH CARE. ADRIAN WITH [facility] FAXED REFERRAL THEY ARE ACCEPTING. FAXED [facility] [place] [facility] AND CONFIRMED REC. SP WITH IN ROOM. SHE REPORTS THEY PREFER TO USE [facility] [phone]. SP WITH [facility], THEY CAN TRANSPORT [phone]. UPDATED RN AND AT BEDSIDE. SHE WILL HAVE SON MEET AT HOME. VERIFIED ADDRESS. NO FURTHER NEEDS
--- NOTE | 2020-10-20 08:13 | HC ---
[facility] [place] [address] CONSULTATION Name: TOMASA MEDINA Room #: 201-P [facility] M.R.#: [id number] Admission: 10/15/20 Attend Phys: Claire Barrett MD Discharge: 10/18/20 Date of : 38 Report #: [id number] THIS REPORT FOR: cc: Kenji Frye MD, Steven E. MD Althoff,Allen Meyer MD ~ DOC #: [id number] Allen Pedraza MD DATE OF SERVICE: 10/16/2020 CHIEF COMPLAINT: Traumatic wounds to both upper extremities. HISTORY OF PRESENT ILLNESS: This is an 80-year-old male patient who apparently was at [facility] following a fall at home, during which time he sustained skin tears to his upper extremities bilaterally. He was sent home, but then presented here with worsening shortness of breath. I have been asked to see him with regard to wound care regarding the wounds on his upper extremities. The patient is aphasic, although his is present at the bedside. He has had prior stroke. 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 He has a history of prior PEG and tracheostomy, both had been taken down. He has a history of coronary artery disease, COPD, hypertension, hyperlipidemia, benign prostatic hypertrophy, previous pneumonia, GERD, chronic kidney disease, atrial fibrillation, abdominal aortic aneurysm. SOCIAL HISTORY: Negative for alcohol or tobacco use. , accompanied by his . FAMILY HISTORY: Positive for coronary artery disease, hypertension and pulmonary disease. ALLERGIES: LEVAQUIN. MEDICATIONS: Include Pulmicort, Ventolin, Atrovent, K-Dur, Xopenex, Flomax, formoterol, Centrum Silver, prednisone, Lipitor, pantoprazole. REVIEW OF SYSTEMS: Not obtainable due to the patient's expressive aphasia. PHYSICAL EXAMINATION: VITAL SIGNS: At this time include temperature 37.0, pulse 75, respirations of 20, blood pressure 124/65. GENERAL: This is a chronically ill-appearing male patient appears to be in minimal distress. HEENT: Head is normocephalic. Nose and throat are clear. [facility] [address] [place] [address] CONSULTATION Name: TOMASA MEDINA Jaspal Room #: 201-P [facility]#: [id number] Admission: 10/15/20 Attend Phys: Claire Barrett MD Discharge: 10/18/20 Date of : 38 Report #: [id number] NECK: Supple. LUNGS: Clear. HEART: Regular rhythm. ABDOMEN: Soft, bowel sounds present. EXTREMITIES: Examination of the extremities demonstrates skin tears to both the right and left forearms. On the right side, there is a large amount of ____ dried blood, which is carefully removed. There is a small flap of skin that is partially necrotic. There is still some mild bleeding occurring at this time. NEUROLOGIC: The patient has right-sided weakness. He has expressive aphasia. LABORATORY DATA: Includes sodium 143, potassium 4.7, chloride 100, CO2 of 42, BUN 21, creatinine is 1.3, glucose of 162. Albumin is 2.6. White blood cell count 7.6 with a hemoglobin of 10.1, hematocrit of 31.4. CLINICAL IMPRESSION: 1. Traumatic wounds to both upper extremities with underlying skin tears. 2. History of coronary artery disease. 3. Hypertension. 4. Hyperlipidemia. 5. Chronic obstructive pulmonary disease. 6. History of cerebrovascular accident with right-sided weakness and expressive aphasia. RECOMMENDATIONS: At this point in time, we will recommend topical Xeroform, ABD, Kerlix and Sid to the upper extremities. No tape to be applied directly to the skin. He will need nutritional support to maximize wound healing. Continue medical management of the other underlying medical issues. I appreciate being asked to see him in consultation. Allen Pedraza MD JRA/KYLE <ELECTRONICALLY SIGNED> By: Allen Pedraza MD 10/20/20 [id number] Allen Pedraza MD /nt
== END 2020-10-18 15:55 | disposition home health service (06) | DRG 177 ==
LOC: ER 14:24 → EROBS 16:51 → 2N 16:51
PROVIDERS: Emergency Medicine; Internal Medicine Pulmonary Disease; ADMIT Internal Medicine; ATTEND Internal Medicine
DX: J69.0 Pneumonitis due to inhalation of food and vomit (principal); J96.21 Acute and chronic respiratory failure with hypoxia; J96.22 Acute and chronic respiratory failure with hypercapnia; J44.1 Chronic obstructive pulmonary disease with (acute) exacerbation; I50.22 Chronic systolic (congestive) heart failure; I47.2 Ventricular tachycardia; I48.19 Other persistent atrial fibrillation; E44.0 Moderate protein-calorie malnutrition; I69.351 Hemiplegia and hemiparesis following cerebral infarction affecting right dominant side; I13.0 Hypertensive heart and chronic kidney disease with heart failure and stage 1 through stage 4 chronic kidney disease, or unspecified chronic kidney disease; R13.10 Dysphagia, unspecified; E78.5 Hyperlipidemia, unspecified; N40.0 Benign prostatic hyperplasia without lower urinary tract symptoms; I25.10 Atherosclerotic heart disease of native coronary artery without angina pectoris; N18.30 Chronic kidney disease, stage 3 unspecified; S41.112A Laceration without foreign body of left upper arm, initial encounter; S41.111A Laceration without foreign body of right upper arm, initial encounter; I49.5 Sick sinus syndrome; I25.5 Ischemic cardiomyopathy; D64.9 Anemia, unspecified; K21.9 Gastro-esophageal reflux disease without esophagitis; Z20.822 Contact with and (suspected) exposure to COVID-19; I73.9 Peripheral vascular disease, unspecified; R53.81 Other malaise; E78.00 Pure hypercholesterolemia, unspecified; I71.4 Abdominal aortic aneurysm, without rupture; I69.320 Aphasia following cerebral infarction; Z93.1 Gastrostomy status; Z93.0 Tracheostomy status; I25.2 Old myocardial infarction; Z95.828 Presence of other vascular implants and grafts; Z86.711 Personal history of pulmonary embolism; Z95.0 Presence of cardiac pacemaker; Z95.5 Presence of coronary angioplasty implant and graft; Z88.1 Allergy status to other antibiotic agents; Z87.891 Personal history of nicotine dependence; Z82.49 Family history of ischemic heart disease and other diseases of the circulatory system; Z83.6 Family history of other diseases of the respiratory system; X58.XXXA Exposure to other specified factors, initial encounter; Y93.89 Activity, other specified; Y92.89 Other specified places as the place of occurrence of the external cause; Y99.8 Other external cause status; Z79.52 Long term (current) use of systemic steroids; Z68.22 Body mass index [BMI] 22.0-22.9, adult
CPT/HCPCS: 10081